=== PATIENT | female | born 1985 | race Caucasian/White ===

== ENCOUNTER 2023-11-30 11:28 | Inpatient (IN) ==
[2023-11-30] MEDS ORDERED: ONDANSETRON INJ 2 MG/ML 2 ML VIAL IV STA ×2 (11:55→16:10)
[2023-11-30] MEDS ORDERED: SODIUM CHLORIDE 0.9% 500 ML IV STA (11:55)
[2023-11-30] MEDS ORDERED: KETOROLAC TROMETHAMINE 15 MG/ML VIAL IV STA (11:55)
[2023-11-30 12:29] LABS: Appearance Urine Cloudy (Clear); Bacteria Urine Automated 2+ (Negative); Blood Urine Negative (Negative); Color Urine Orange; Epithelial Cell Urine Auto >30 /lpf (0-5); Glucose Urine UA Trace (Negative); Ketones Urine Trace (Negative); Leukocyte Esterase Urine 1+ (Negative); Nitrite Urine Positive (Negative); Protein Urine 2+ (Negative); Specific Gravity Urine > 1.045 (1.000-1.030); Urobilinogen Urine Positive (Negative); WBC Urine Automated >30 /hpf (0-5)
[2023-11-30 12:36] LABS: Bilirubin Urine 3+ (Negative)
[2023-11-30 12:39] LABS: Basophils # (auto) 0.07 K/uL (0.00-0.20); Basophils % (auto) 0.4 %; Eosinophils # (auto) 0.25 K/uL (0.00-0.50); Eosinophils % (auto) 1.6 %; Hematocrit (blood only) 41.3 % (37.0-47.0); Hemoglobin 13.2 g/dl (12.0-16.0); Immature Granulocytes # (auto) 0.07 K/uL (0.01-0.20); Immature Granulocytes % (auto) 0.4 %; Lymphocytes # (auto) 1.27 K/uL (1.20-3.40); Lymphocytes % (auto) 7.9 %; Mean Corpuscular Hemoglobin 26.3 pg (25.0-34.0); Mean Corpuscular Volume 82.3 fL (80.0-100.0); Mean Platelet Volume 10.9 fL (9.4-12.4); Monocytes # (auto) 0.87 K/uL (0.11-0.59); Monocytes % (auto) 5.4 %; Neutrophils # (auto) 13.51 K/uL (1.40-6.50); Neutrophils % (auto) 84.3 %; Platelet Count 290 K/uL (130-400); RDW Coefficient of Variation 13.2 % (11.5-14.5); RDW Standard Deviation 39.4 fL (36.4-46.3); Red Blood Count 5.02 M/uL (4.20-5.40); White Blood Count 16.04 K/ul (4.8-10.8)
[2023-11-30 12:54] LABS: Albumin Globulin Ratio 1.2 (0.9-2); Albumin Level 4.1 gm/dl (3.4-5.0); BUN Creatinine Ratio 14.5 (10-20); Calcium 9.6 mg/dl (8.6-10.3); Creatinine Clr Calc Pharmacy 130.5 ml/min; Est GFR (African American) 130.7 ml/min; Est GFR (Non-African American) 112.8 ml/min; Globulin 3.5 gm/dl (2.5-4.0); Potassium 3.7 mmol/L (3.5-5.1); Total Protein 7.6 gm/dl (6.0-8.3)
[2023-11-30 13:19] LABS: Mucus Urine Present (None Prsent); RBC Urine Automated 0-4 /hpf (0-4)
[2023-11-30] MEDS ORDERED: CEFEPIME 2,000 MG/20 ML VIAL IV STA (13:24)
[2023-11-30] MEDS ORDERED: SODIUM CHLORIDE 0.9% 1,000 ML IV ONE (13:24)
--- NOTE | 2023-11-30 13:45 | Emergency Department Note ---
Impression & Plan RUQ abdominal pain, Acute cholecystitis, Leukocytosis, Elevated liver enzymes ED Provider Note NAME: GOPI MUNGUIA AGE: 38 SEX: F : 1985 ARRIVES VIA: Walk-In INFORMANT: [Patient] ED PROVIDER(S): [Dean Tavera MD] CHIEF COMPLAINT: Dr. Referred HISTORY OF PRESENT ILLNESS: Abdominal ultrasound report from 11/30/2023-cholelithiasis, gallbladder wall thickening, positive sonographic Abreu sign. Findings are suspicious for acute cholecystitis. The common bile duct is dilated to 8 mm, uncertain etiology. The patient is a 38-year-old female who has had 5 days of pain in the right upper quadrant and right back. She states that things have not subsided. She has had some nausea but no vomiting. She has had some chills, no fever. She has no appetite. No diarrhea or urinary complaints. No cough or cold or congestion. The patient has had pain similar to this before but it has always resolved spontaneously. The patient had an outpatient ultrasound performed today at [facility]. This showed evidence for acute cholecystitis. She was referred to the ER. PMHx/PSHx/Social Hx: See Below PHYSICAL EXAM: GENERAL: Patient is in no acute distress. HEENT: No acute trauma, normocephalic atraumatic, mucous membranes moist, no nasal congestion. NECK: No stridor, no adenopathy, no meningismus, trachea is midline. LUNGS: Clear to auscultation bilaterally, no wheeze, no rhonchi, breath sounds equal. HEART: Without murmurs gallops or rubs, regular rate and rhythm. ABDOMEN: Soft, moderately tender in the right upper quadrant. No distention EXTREMITIES: No cyanosis, full range of motion of all the joints without pain or difficulty. NEUROLOGIC: Oriented x 3, no acute motor or sensory deficits, no focal weakness. SKIN: No jaundice, no diaphoresis. DIFFERENTIAL DIAGNOSIS: Biliary obstruction, acute cholecystitis, biliary colic, pancreatitis, gastritis, electrolyte imbalance, among others. EMERGENCY DEPARTMENT PROCEDURES: MEDICAL DECISION MAKING: There is a moderate leukocytosis, this is consistent with infection. There is a normal hemoglobin and platelet count. No renal failure or significant electrolyte abnormality. There is elevation to the liver enzymes. Bilirubin was 2. No evidence for pancreatitis. Urinalysis shows potential infection versus contamination. Gallbladder ultrasound from the outpatient setting does show findings of acute cholecystitis. On exam, the patient was tender in the right upper quadrant. She was not toxic or febrile. Patient received IV saline, 1.5 L. She was given IV Zofran and IV morphine and IV Toradol. She received IV cefepime as antibiotic coverage. I did speak with GI here at [facility], there was no one available for ERCP. I did speak with general surgery here at [facility], they recommended transfer as there is no one available for ERCP. I did call and speak with Dr. Sung at [facility] in [place]. He was on-call for GI. He recommended an MRCP to see if there was truly a biliary obstruction. If there was obstruction on MRCP, the patient could potentially be transferred to their hospital tomorrow. There were no beds available for transfer this evening. For now, the patient will be hospitalized at our facility. MRCP has been ordered. If there is an obstruction of the biliary system, she can be transferred to [facility], hopefully tomorrow. If there is no obstruction, surgery can see her here for cholecystectomy. The patient is aware of her findings, she is currently resting comfortably. I did speak with case management, the on-call hospitalist was consulted. Prior/Outside records/notes reviewed: Orthopedic note from 08/10/2023 discussing her left knee pain and the plan moving forward. ECG per my interpretation: Indication was abdominal pain. The ECG shows a normal sinus rhythm with a rate of 94. There is some nonspecific ST change primarily in the inferior leads. There is no ST elevation, no PVCs. The QTc is 432. Continuous Cardiac Monitoring per my interpretation: An order was placed for continuous cardiac monitoring. The monitor shows a rate of 98 with normal sinus rhythm. Imaging/x-ray results per my interpretation: Chronic Medical/Social conditions affecting care: Care/Management discussed with: Case management, [facility] GI- Dr. Mcdermott. General surgery here at [facility]. [facility] GI- Dr. Sung. Level of care consideration(s): After review of the information above and other included data: --I believe the patient requires escalation of care to admission Critical Care Note: I have personally spent 41 minutes of critical care time in the direct management of this patient. This includes bedside care, interpretation of diagnostic studies, and testing, discussion with consultants, patient, and family members, and other required patient management activities. This 41 minutes is in excess of all separately billable procedures. DISPOSITION: Admission with potential transfer to tertiary care. Past Med/Surg History Medical History Seasonal allergies Depression with anxiety Surgical History (Updated 11/30/23 @ 16:27 by Raven Mckay PA-C) Hx of tubal ligation Family History (Updated 11/30/23 @ 16:27 by Raven Mckay PA-C) Other Diabetes Social History Smoking Status: Never smoker Hx Alcohol Use: No Hx Substance Use: No Preferred Language: Yakut Communication Ability: Effective marital status: Current Living Situation: Spouse Feels Safe at Home: Yes Allergies Allergies Allergy/AdvReac Type Severity Reaction Status Date / Time Penicillins Allergy Unknown Unknown Verified 11/30/23 15:20 Home Meds Home Medications Medication Instructions Recorded Confirmed escitalopram oxalate 10 mg tablet 10 mg PO DAILY 07/13/23 11/30/23 dextroamphetamine-amphetamine ER 20 mg PO QAM 11/30/23 11/30/23 20 mg 24hr capsule,extend release Results & Data (ED) Vital Signs Vital Signs - 24 hr 11/30/23 11:52 11/30/23 14:25 11/30/23 15:57 Temperature 36.6 C Temperature Source Temporal Artery Scan Pulse Rate 107 H Pulse Rate [Apical] 91 H 88 Respiratory Rate 20 18 16 Respiratory Effort / Characteristics Non-Labored Non-Labored Spontaneous Respiratory Depth Normal Normal Respiratory Pattern Regular Blood Pressure 135/75 Blood Pressure [Left Arm] 118/67 124/79 Blood Pressure Mean 95 Blood Pressure Mean [Left Arm] 84 94 Blood Pressure Position [Left Arm] Lying Pulse Oximetry 100 99 100 Oxygen Delivery Method Room Air Room Air Room Air Sepsis Recent Fever Within 48 Hours No Sepsis New/Unexplained Change in Mental Status No Sepsis Action Taken by Nursing No Action Required 11/30/23 17:00 Temperature Temperature Source Pulse Rate Pulse Rate [Apical] 99 H Respiratory Rate 18 Respiratory Effort / Characteristics Respiratory Depth Respiratory Pattern Blood Pressure Blood Pressure [Left Arm] 107/72 Blood Pressure Mean Blood Pressure Mean [Left Arm] 83 Blood Pressure Position [Left Arm] Pulse Oximetry 99 Oxygen Delivery Method Sepsis Recent Fever Within 48 Hours Sepsis New/Unexplained Change in Mental Status Sepsis Action Taken by [facility] Medications Current Medication List: was personally reviewed by me Laboratory Data Attestation: I reviewed the patient's lab results. 11/30/23 12:00 11/30/23 12:00 Lab Results 11/30/23 Range/Units 12:00 WBC 16.04 H (4.8-10.8) K/ul RBC 5.02 (4.20-5.40) M/uL Hgb 13.2 (12.0-16.0) g/dl Hct 41.3 (37.0-47.0) % MCV 82.3 (80.0-100.0) fL MCH 26.3 (25.0-34.0) pg MCHC 32.0 (32.0-36.0) g/dL RDW Std Deviation 39.4 (36.4-46.3) fL RDW Coeff of Yasmin 13.2 (11.5-14.5) % Plt Count 290 (130-400) K/uL MPV 10.9 (9.4-12.4) fL Immature Gran % (Auto) 0.4 % Neut % (Auto) 84.3 % Lymph % (Auto) 7.9 % [place] % (Auto) 5.4 % Eos % (Auto) 1.6 % Baso % (Auto) 0.4 % Neut # (Auto) 13.51 H (1.40-6.50) K/uL Lymph # (Auto) 1.27 (1.20-3.40) K/uL [place] # (Auto) 0.87 H (0.11-0.59) K/uL Eos # (Auto) 0.25 (0.00-0.50) K/uL Baso # (Auto) 0.07 (0.00-0.20) K/uL Immature Gran # (Auto) 0.07 (0.01-0.20) K/uL Sodium 138 (136-145) mmol/L Potassium 3.7 (3.5-5.1) mmol/L Chloride 101 (98-107) mmol/L Carbon Dioxide 30 (21-32) mmol/L Anion Gap 7 (3-11) BUN 9 (6-23) mg/dl Creatinine 0.62 (0.6-1.2) mg/dl Est Cr Clr Drug Dosing 130.5 ml/min Est GFR ( Amer) 130.7 ml/min Est GFR (Non-Af Amer) 112.8 ml/min BUN/Creatinine Ratio 14.5 (10-20) Glucose 100 H (70-99(Fasting)) mg/dl Calcium 9.6 (8.6-10.3) mg/dl Total Bilirubin 2.0 H (0.2-1.0) mg/dl AST 148 H (13-39) U/L ALT 166 H (7-52) U/L Alkaline Phosphatase 189 H (34-104) U/L Total Protein 7.6 (6.0-8.3) gm/dl Albumin 4.1 (3.4-5.0) gm/dl Globulin 3.5 (2.5-4.0) gm/dl Albumin/Globulin Ratio 1.2 (0.9-2) Lipase 15 (11-82) U/L Urine Color Ranger Urine Appearance Cloudy A (Clear) Urine pH 6.0 (4.5-7.5) Ur Specific [place] > 1.045 H (1.000-1.030) Urine Protein 2+ H (Negative) Urine Glucose (UA) Trace H (Negative) Urine Ketones Trace H (Negative) Urine Blood Negative (Negative) Urine Nitrite Positive A (Negative) Urine Bilirubin 3+ H (Negative) Urine Urobilinogen Positive H (Negative) Ur Leukocyte Esterase 1+ H (Negative) Urine WBC (Auto) >30 H (0-5) /hpf Urine RBC (Auto) 0-4 (0-4) /hpf U Hyaline Cast (Auto) 5-10 H (0-5) /lpf U Epithel Cells (Auto) >30 H (0-5) /lpf Urine Bacteria (Auto) 2+ H (Negative) Urine Mucus Present A (None Prsent) Administered Medications Discontinued Medications Sodium Chloride (Nss) 500 mls @ 999 mls/hr IV .Q31M STA Stop: 11/30/23 12:25 Last Infusion: 11/30/23 14:11 Dose: Infused Documented By: Admin: 11/30/23 12:14 Dose: 999 mls/hr Documented By: TABITHA Cefepime HCl (Maxipime) 2,000 mg in 20 mls @ 5 mls/min IV NOW STA; Protocol Stop: 11/30/23 13:27 Last Admin: 11/30/23 14:19 Dose: 5 mls/min Documented By: RASHAD Sodium Chloride (Nss) 1,000 mls @ 999 mls/hr IV .Q1H1M ONE Stop: 11/30/23 14:24 Last Infusion: 11/30/23 15:57 Dose: Infused Documented By: Admin: 11/30/23 14:19 Dose: 999 mls/hr Documented By: RASHAD Ketorolac Tromethamine (Ketorolac Tromethamine 15 Mg/Ml Vial) 15 mg IV ONE STA Stop: 11/30/23 11:56 Last Admin: 11/30/23 12:13 Dose: 15 mg Documented By: TABITHA Ketorolac Tromethamine (Ketorolac Tromethamine 15 Mg/Ml Vial) Confirm Administered Dose 15 mg .ROUTE .STK-MED ONE Stop: 11/30/23 16:47 Last Admin: 11/30/23 17:00 Dose: Not Given Documented By: THA Morphine Sulfate (Morphine Sulfate 4 Mg/Ml 1 Ml Carp\Vial) 4 mg IV NOW STA Stop: 11/30/23 16:11 Last Admin: 11/30/23 16:16 Dose: 4 mg Documented By: THA Ondansetron HCl (Ondansetron Inj 2 Mg/Ml 2 Ml Vial) 4 mg IV NOW STA Stop: 11/30/23 11:56 Last Admin: 11/30/23 12:13 Dose: 4 mg Documented By: TABITHA Ondansetron HCl (Ondansetron Inj 2 Mg/Ml 2 Ml Vial) 4 mg IV NOW STA Stop: 11/30/23 16:11 Last Admin: 11/30/23 16:16 Dose: 4 mg Documented By: THA Imaging Data Radiologist's Impression: Cholangiopancreatography MRI 11/30/23 15:50 MR MRCP HISTORY: ruq pain, cholecystitis TECHNIQUE: MRCP the abdomen was performed without contrast according to standard departmental protocol. COMPARISON STUDY: None. FINDINGS: The lung bases are clear. No hepatic or splenic masses. No hydronephrosis. No retroperitoneal lymphadenopathy. There is a left circumaortic renal vein. Normal caliber abdominal aorta. The visualized loops of bowel show no wall thickening or obstruction. There are multiple small gallstones. The gallbladder demonstrates a severely thickened wall with pericholecystic fluid/edema. The edema is seen along the undersurface of the liver adjacent to the pancreatic head. This is likely reactive to the suspected acute cholecystitis. The common hepatic duct is mildly dilated up to 9 mm. Normal caliber common bile duct measuring 5.8 mm. No filling defects within the common bile duct or common hepatic duct. The main pancreatic duct is normal in course and caliber. There is a 7 mm stone at the gallbladder neck/cystic duct best seen on coronal series 5 image 14. This likely accounts for the suspected acute cholecystitis. IMPRESSION: 1. Cholelithiasis with a markedly thickened gallbladder wall and pericholecystic fluid/edema. There is a 7 mm stone at the gallbladder neck/cystic duct. This likely accounts for the suspected acute cholecystitis. Urgent surgical consultation recommended. 2. No evidence for choledocholithiasis. ACT 112: Negative or not required by law. Electronically signed by: Mark Anthony Wilcox M.D. 11/30/2023 5:42 PM Discharge Plan Visit Data Chief Complaint: Referred by Doctor Stated Complaint: GALLBLADDER ISSUES ED Provider: Dean Tavera Discharge Problem: RUQ abdominal pain, Acute cholecystitis, Leukocytosis, Elevated liver enzymes Patient Disposition: Admitted As Inpatient Condition: Fair Prescriptions Prescriptions: No Action escitalopram oxalate 10 mg tablet 10 mg PO DAILY dextroamphetamine-amphetamine 20 mg capsule,extended release 24hr 20 mg PO QAM Discharge Problem: Leukocytosis Qualifiers: Leukocytosis type: unspecified Qualified Code(s): D72.829 - Elevated white blood cell count, unspecified
--- NOTE | 2023-11-30 14:53 | Electrocardiogram Report ---
Test Reason : Blood Pressure : / mmHG Vent. Rate : 094 BPM Atrial Rate : 094 BPM P-R Int : 126 ms QRS Dur : 074 ms QT Int : 346 ms P-R-T Axes : 051 015 -09 degrees QTc Int : 432 ms Normal sinus rhythm Nonspecific ST and T wave abnormality Abnormal ECG No previous ECGs available Confirmed by Morgan Palmer ([id number]) on 11/30/2023 2:53:30 PM Referred By: Confirmed By:Morgan Palmer
[2023-11-30] MEDS ORDERED: MoRPHine SULFATE 4 MG/ML 1 ML CARP\\VIAL IV STA (16:10)
[2023-11-30] MEDS ORDERED: metroNIDAZOLE 500 MG/100 ML BAG IV STA (16:28)
[2023-11-30] MEDS ORDERED: KETOROLAC TROMETHAMINE 15 MG/ML VIAL IV ONE (16:44)
[2023-11-30] MEDS ORDERED: KETOROLAC TROMETHAMINE 15 MG/ML VIAL ONE (16:46)
[2023-11-30] MEDS ORDERED: NSS + 20MEQ KCL 20 MEQ/1,000 ML BAG IV SCH (17:00)
--- NOTE | 2023-11-30 17:11 | History & Physical Report ---
Date of Service November 30, 2023 Assessment & Plan (1) Sepsis: (2) Acute cholecystitis: (3) Transaminitis: (4) Abdominal pain: (5) Abnormal urinalysis: Plan This is a 38-year-old female who has a significant past medical history of depression with anxiety, seasonal allergies and ADHD who presents to ED secondary to abnormal abdominal ultrasound as outpatient and abdominal pain. On admission pt meeds criteria for sepsis due to tachycardia, leukocytosis received broad spectrum antibiotics with IV cefepime Received IVF, 1500ml source: Gallbladder, possible UTI Sepsis, POA Abdominal pain Acute cholecystitis Transaminitis OP US: Cholelithiasis, gallbladder wall thickening, positive Abreu sign concerning for acute cholecystitis, CBD dilated to 8 mm Obtain MRCP to rule out obstruction ED provider discussed with on-call gastroenterology MRCP performed Cholelithiasis with a markedly thickened gallbladder wall and pericholecystic fluid/edema. There is a 7 mm stone at the gallbladder neck/cystic duct. This likely accounts for the suspected acute cholecystitis. Urgent surgical consultation recommended. 2. No evidence for choledocholithiasis. Discussed with General Surgery Dr. Cj Buenrostro as well as [facility] Transfer center team Dr. Sung GI and Dr Campo gen surg of [place] All were in agreement to transfer pt to tertiary given lack of biliary coverage on site Accepting physician is Dr. Campo, no bed available tonight, possibly tomorrow will consult GI while in house Trend CMP, CBC in a.m., also add mag Continue antibiotics with IV cefepime and IV Flagyl IV NSS +20 mEq KCl at 110/h Pain control with IV Tylenol mild pain, IV Toradol moderate pain, IV Dilaudid severe pain T bili 2.0, AST 148, ALT 166, ALP 189 obtain lactic acid and serum hcg Abnormal urinalysis Urinalysis concerning for possible infection Patient denies any symptoms, has previous history of urinary tract infection with symptoms Currently on antibiotics as above, await urine culture Would recommend repeat urine once acute illness improved Depression with anxiety ADHD chronic, stable Continue escitalopram Hold dextroamphetamine while inpatient DVT prophylaxis: SCDs due to likely upcoming procedure, encouraged ambulation Full code PCP: Dr. Daigle Dispo: admit to tele, pt is in que for transfer to [facility] for ERCP Pt was seen and examined in collaboration with Dr. Kanorado, please see addendum A total of 85 minutes was spent coordinating, documenting, and providing care for this patient excluding time spent in the performance of separately billed services. This included personally viewing all current laboratories and imaging studies, medication reconciliation, outpatient chart review, and discussion with specialists. History of Present Illness Chief Complaint: Abdominal pain Primary Care Provider: Lety Daigle DO This is a 38-year-old female who has a significant past medical history of depression with anxiety, seasonal allergies and ADHD who presents to ED second marlon to abnormal abdominal ultrasound as outpatient and abdominal pain. She was seen and evaluated in outpatient clinic today. Outpatient records were reviewed. Symptoms started approximately 5 days ago with right upper quadrant pain, nausea and bloating. She forced herself to vomit this past Monday, but has not vomited since. She has not drank anything in the last 24 hours due to not feeling well. Pain gets worse with eating. She has never had similar symptoms. Pain does not radiate. She denies any documented fever, chills or sweats. She further denies any chest pain, cough, URI symptoms, dysuria, increased urinary frequency with urination, hematuria, melena, hematochezia or diarrhea. She does complain of shortness of breath when pain becomes severe. An abdominal ultrasound was ordered as an outpatient. Ultrasound was equivocal for cholelithiasis, gallbladder wall thickening with positive Abreu sign concerning for acute cholecystitis. Her CBD was measuring 8 mm and dilated. She was referred to ED for further evaluation. In ED she was hemodynamically stable. She did have leukocytosis with WBC at 16k, transaminitis with total bilirubin of 2.0, AST 148, ALT 166 and alk phos 189. Her urinalysis revealed +2 protein, glucose, ketones, bilirubin, nitrate and bacteria. She empirically received IV cefepime, IV fluids, IV Zofran, IV morphine and Toradol in ED. She has allergy to penicillins. Her is at bedside who also helps elicit history. Allergies Allergy/AdvReac Type Severity Reaction Status Date / Time Penicillins Allergy Unknown Unknown Verified 11/30/23 15:20 Home Medications Medication Instructions Recorded Confirmed Type escitalopram oxalate 10 mg tablet 10 mg PO DAILY 07/13/23 11/30/23 History dextroamphetamine-amphetamine ER 20 mg PO QAM 11/30/23 11/30/23 History 20 mg 24hr capsule,extend release Past Med/Surg History Medical History Seasonal allergies Depression with anxiety Surgical History Hx of tubal ligation Family History Other Diabetes Social History Smoking Status: Never smoker Hx Alcohol Use: No Hx Substance Use: No Preferred Language: Khmer Communication Ability: Effective marital status: Current Living Situation: Spouse Feels Safe at Home: Yes Review of Systems Review of Systems: All systems reviewed & are unremarkable except as noted in HPI & below Physical Exam Physical Exam: Constitutional: WD/WN, vitals as above, NAD, sitting up in bed, pleasant, conversing easily Head: Normocephalic, Atraumatic Eyes: PERRL, conjunctivae normal, anicteric sclerae ENMT: external ear and nose normal, oropharynx normal Neck: trachea midline, no thyromegaly normal visual inspection Respiratory: normal respiratory effort, lungs clear to auscultation, no wheeze, rales, rhonchi. Normal insp/exp effort, no accessory muscle use Cardiovascular: RRR, no murmur, no edema Vessels: no JVD or carotid bruit Chest: normal inspection of chest Abdomen: normal bowel sounds, soft, +pain to palp RUQ with rebound, not distended Musculoskeletal: no cyanosis or clubbing, extremities motor strength 5/5 Skin: no rashes, warm and dry normal turgor Neurologic: PERRL, EOMI, accommodation nl, no face palsy, no dysarthria CN's II-XI intact bilaterally and moves all extremities Psychiatric: A+Ox3, euthymic affect Lymphatic: no cervical or axillary lymphadenopathy : deferred Results & Data Results & Data Vital Signs (Past 12 Hours) Vital Signs Temp Pulse Pulse Resp BP BP Pulse Ox 11/30/23 15:57 88 16 124/79 100 11/30/23 14:25 91 H 18 118/67 99 11/30/23 11:52 36.6 C 107 H 20 135/75 100 O2 Del Method 11/30/23 15:57 Room Air 11/30/23 14:25 Room Air 11/30/23 11:52 Room Air Diagnostic Findings OP US of abd: 1. Cholelithiasis, gallbladder wall thickening, and positive sonographic Abreu's sign. Findings are suspicious for acute cholecystitis. 2. The common bile duct is dilated to 8 mm, uncertain etiology. Consider MRI/MR CP for further evaluation. Medications Administered Medication List Discontinued Medications Sodium Chloride (Nss) 500 mls @ 999 mls/hr IV .Q31M STA Stop: 11/30/23 12:25 Last Infusion: 11/30/23 14:11 Dose: Infused Documented By: Admin: 11/30/23 12:14 Dose: 999 mls/hr Documented By: TABITHA Cefepime HCl (Maxipime) 2,000 mg in 20 mls @ 5 mls/min IV NOW STA; Protocol Stop: 11/30/23 13:27 Last Admin: 11/30/23 14:19 Dose: 5 mls/min Documented By: RASHAD Sodium Chloride (Nss) 1,000 mls @ 999 mls/hr IV .Q1H1M ONE Stop: 11/30/23 14:24 Last Infusion: 11/30/23 15:57 Dose: Infused Documented By: Admin: 11/30/23 14:19 Dose: 999 mls/hr Documented By: RASHAD Ketorolac Tromethamine (Ketorolac Tromethamine 15 Mg/Ml Vial) 15 mg IV ONE STA Stop: 11/30/23 11:56 Last Admin: 11/30/23 12:13 Dose: 15 mg Documented By: TABITHA Ketorolac Tromethamine (Ketorolac Tromethamine 15 Mg/Ml Vial) Confirm Administered Dose 15 mg .ROUTE .STK-MED ONE Stop: 11/30/23 16:47 Last Admin: 11/30/23 17:00 Dose: Not Given Documented By: THA Morphine Sulfate (Morphine Sulfate 4 Mg/Ml 1 Ml Carp\Vial) 4 mg IV NOW STA Stop: 11/30/23 16:11 Last Admin: 11/30/23 16:16 Dose: 4 mg Documented By: THA Ondansetron HCl (Ondansetron Inj 2 Mg/Ml 2 Ml Vial) 4 mg IV NOW STA Stop: 11/30/23 11:56 Last Admin: 11/30/23 12:13 Dose: 4 mg Documented By: TABITHA Ondansetron HCl (Ondansetron Inj 2 Mg/Ml 2 Ml Vial) 4 mg IV NOW STA Stop: 11/30/23 16:11 Last Admin: 11/30/23 16:16 Dose: 4 mg Documented By: THA ECG Rate (beats per minute): 94 Rhythm: normal sinus Additional Comments: I have independently reviewed and interpreted patient's admitting labs including CBC, CMP, UA, OP US, LIPASE . COVID-19 Results Results COVID-19 Adm Lab Results: RBC 5.02 M/uL (4.20-5.40) 11/30/23 WBC 16.04 K/ul (4.8-10.8) H 11/30/23 Hgb 13.2 g/dl (12.0-16.0) 11/30/23 Hct 41.3 % (37.0-47.0) 11/30/23 Plt Count 290 K/uL (130-400) 11/30/23 Neutrophils (%) (Auto) 84.3 % 11/30/23 Lymphocytes (%) (Auto) 7.9 % 11/30/23 Monocytes # (Auto) 0.87 K/uL (0.11-0.59) H 11/30/23 Eosinophils # (Auto) 0.25 K/uL (0.00-0.50) 11/30/23 Immature Granulocyte % (Auto) 0.4 % 11/30/23 Neutrophils # (Auto) 13.51 K/uL (1.40-6.50) H 11/30/23 Lymphocytes # (Auto) 1.27 K/uL (1.20-3.40) 11/30/23 Monocytes # (Auto) 0.87 K/uL (0.11-0.59) H 11/30/23 Eosinophils # (Auto) 0.25 K/uL (0.00-0.50) 11/30/23 Basophils # (Auto) 0.07 K/uL (0.00-0.20) 11/30/23 Immature Granulocyte # (Auto) 0.07 K/uL (0.01-0.20) 4 Na 138 mmol/L (136-145) 11/30/23 K 3.7 mmol/L (3.5-5.1) 11/30/23 Cl 101 mmol/L (98-107) 11/30/23 CO2 30 mmol/L (21-32) 11/30/23 Anion Gap 7 (3-11) 11/30/23 BUN 9 mg/dl (6-23) 11/30/23 Creatinine 0.62 mg/dl (0.6-1.2) 11/30/23 BUN/Creatinine Ratio 14.5 (10-20) 11/30/23 Glucose Level 100 mg/dl (70-99(Fasting)) H 11/30/23 Ca 9.6 mg/dl (8.6-10.3) 11/30/23 Total Bilirubin 2.0 mg/dl (0.2-1.0) H 11/30/23 AST/SGOT 148 U/L (13-39) H 11/30/23 ALT/SGPT 166 U/L (7-52) H 11/30/23 Alkaline Phosphatase 189 U/L (34-104) H 11/30/23 Total Protein 7.6 gm/dl (6.0-8.3) 11/30/23 Albumin 4.1 gm/dl (3.4-5.0) 11/30/23 Globulin 3.5 gm/dl (2.5-4.0) 11/30/23 Albumin/Globulin Ratio 1.2 (0.9-2) 11/30/23 Code Status & VTE Plan Code Status FULL CODE VTE Prophylaxis Plan VTE Prophylaxis will be ordered: Yes Supervising Physician Co-Signing Physician Notes I have seen and examined the patient and have discussed the case with the provider above. I agree with the assessment and plan as stated. 38-year-old female presents with severe right upper quadrant pain and epigastric pain. Found to have a developing acute cholecystitis with cholelithiasis and a dilated common bile duct. MRCP as noted above. Planning for transfer to [facility] [place] [place]. Will trend LFTs in AM. Continue with IV antibiotics including cefepime and IV Flagyl. Continue IV fluids for hydration as well as aggressive pain control with Toradol and Dilaudid for severe pain. She is requesting fluids to drink which is reassuring. is at bedside and assist with history. Physical exam with severe epigastric tenderness and right upper quadrant pain but belly is nondistended. She is otherwise mentating well and exam is otherwise unremarkable or as noted above. Continue with broad-spectrum antibiotics pain control and await transfer to outside facility. Nic,
--- NOTE | 2023-11-30 17:44 | Magnetic Resonance Report ---
MR MRCP HISTORY: ruq pain, cholecystitis TECHNIQUE: MRCP the abdomen was performed without contrast according to standard departmental protoco l. COMPARISON STUDY: None. FINDINGS: The lung bases are clear. No hepatic or splenic masses. No hydronephrosis. No retroperitone al lymphadenopathy. There is a left circumaortic renal vein. Normal caliber abdominal aorta. The visu alized loops of bowel show no wall thickening or obstruction. There are multiple small gallstones. Th e gallbladder demonstrates a severely thickened wall with pericholecystic fluid/edema. The edema is s een along the undersurface of the liver adjacent to the pancreatic head. This is likely reactive to t he suspected acute cholecystitis. The common hepatic duct is mildly dilated up to 9 mm. Normal calibe r common bile duct measuring 5.8 mm. No filling defects within the common bile duct or common hepatic duct. The main pancreatic duct is normal in course and caliber. There is a 7 mm stone at the gallbla dder neck/cystic duct best seen on coronal series 5 image 14. This likely accounts for the suspected acute cholecystitis. IMPRESSION: 1. Cholelithiasis with a markedly thickened gallbladder wall and pericholecystic fluid/edema. There i s a 7 mm stone at the gallbladder neck/cystic duct. This likely accounts for the suspected acute chol ecystitis. Urgent surgical consultation recommended. 2. No evidence for choledocholithiasis. ACT 112: Negative or not required by law. Electronically signed by: Mark Anthony Wilcox M.D. 11/30/2023 5:42 PM
[2023-11-30] MEDS ORDERED: HYDROmorphone INJ 0.5 MG/0.5 ML SYR IV PRN (18:00)
[2023-11-30] MEDS ORDERED: ONDANSETRON INJ 2 MG/ML 2 ML VIAL IV PRN (18:00)
[2023-11-30] MEDS: NSS + 20MEQ KCL 20 MEQ/1,000 ML BAG IV SCH (18:44)
--- NOTE | 2023-11-30 19:32 | Surgery Consultation ---
Date of Consultation November 30, 2023 Assessment & Plan (1) Acute cholecystitis: The patient is being admitted on the hospitalist service. From surgical perspective we recommend the following: Patient has elevated LFTs, and although there is no choledocholithiasis noted on MRCP her common bile duct is dilated thus raising the concern for false negative MRCP for choledocholithiasis. Gastroenterology has been consulted and reportedly ERCP services are not available at [facility] at this time. Therefore plans are in place for patient to be transferred to [facility] in [place], [place]. At the present time there are no beds available at [place] Would recommend providing analgesics Provide antiemetics The patient is currently receiving clear liquids she should be made n.p.o. after midnight tonight IV fluids to be provided for hydration Antibiotics in form of cefepime and Flagyl have been initiated and he should continue Repeat labs to be ordered for the morning. I discussed with the patient that if on repeat labs her LFTs are normalizing we can tentatively plan on performing a cholecystectomy with Dr. Cj Buenrostro. I did discuss with the patient that if we do proceed with cholecystectomy in the setting of decreasing LFTs there is still a chance that she could have choledocholithiasis that would require procedural intervention following her surgery which would likely include an ERCP. She did express her understanding Recommend using only SCDs for DVT prevention, no chemical means due to the possibility of required procedures This recommendations be forthcoming based on her clinical course as unfolds Supervising Physician Co-Signing Physician Notes I personally saw and evaluated the patient with Jacques Penny PA-C and agree with the assessment and plan. 38-year-old female with acute cholecystitis and elevated LFTs Her ultrasound images and MRCP images and results were personally reviewed and interpreted by myself She does have a dilated duct on ultrasound but not MRCP and no choledocholithiasis seen She also has acute cholecystitis, her liver enzymes are stable to trending down this morning Will proceed with a laparoscopic cholecystectomy, possible open, possible intraoperative cholangiogram Consent was obtained, risks discussed including bleeding, infection, bile leak, ductal injury, retained stone I did discuss her management with [facility] did not feel she needed an ERCP based on her imaging findings History of Present Illness Reason for Consultation: Cholecystitis Attending Physician: Destiny Lucero, History of Present Illness This is a 38-year-old female who presented to the emergency department secondary to abdominal pain. Patient notes that she has had 5 days of pain in her right upper quadrant and epigastric area with some radiation to her back. She says that she self-induced vomiting as she felt nauseated which somewhat alleviated the pain but her pain would continue to recur. She denies any fevers, shakes, or chills. Patient says that she has had prior abdominal surgeries in the form of a laparoscopic tubal ligation. She has never had an upper or lower endoscopy. Because of the patient's symptoms she did contact her primary care team who ordered an ultrasound. She did have an ultrasound at an outpatient [facility] facility that showed evidence for acute cholecystitis, thus prompting her referral to the emergency department. Since arrival to the hospital this patient has had labs and imaging which I independent reviewed. Patient underwent a MRCP. This study showed the patient had cholelithiasis with a thickened gallbladder wall and pericholecystic fluid and edema consistent with cholecystitis. There is also note of a 7 mm gallstone at the gallbladder neck. There is no evidence of choledocholithiasis on the study, however the common hepatic duct was dilated up to 9 mm. Labs include a CBC her white blood cell count was elevated 16.0. Hemoglobin and hematocrit along with a platelet count were normal. Chemistry profile showed sodium and potassium as well as the BUN and creatinine were normal. Patient had elevated LFTs with a total bilirubin of 2.0. Her AST and ALT were 148 and 166 respectively. Alkaline phosphatase is elevated 189. Her lipase was nonelevated. A test was pending. Patient also had a urinalysis that showed cloudy urine which was positive for nitrites. There is 1+ leukocyte Estrace and greater than 30 white blood cells per high-power field. There was 2+ bacteria noted on the study. At the time of my interview the patient was resting comfortably in bed and she was no distress. Allergies Allergy/AdvReac Type Severity Reaction Status Date / Time Penicillins Allergy Unknown Unknown Verified 11/30/23 15:20 Home Medications Medication Instructions Recorded Confirmed Type escitalopram oxalate 10 mg tablet 10 mg PO DAILY 07/13/23 11/30/23 History dextroamphetamine-amphetamine ER 20 mg PO QAM 11/30/23 11/30/23 History 20 mg 24hr capsule,extend release Patient History Medical History Seasonal allergies Depression with anxiety Surgical History Hx of tubal ligation Family History Other Diabetes Social History Smoking Status: Never smoker Hx Alcohol Use: No Hx Substance Use: No Preferred Language: Irish Communication Ability: Effective marital status: Current Living Situation: Spouse Feels Safe at Home: Yes Review of Systems Constitutional: no fever and no chills Ear, Nose, Mouth, Throat: no ear pain Respiratory: no cough Cardiovascular: no chest pain Gastrointestinal: as per Subjective / HPI Genitourinary: no dysuria Musculoskeletal: + back pain (Radiating from abdomen) Integumentary: no rash Neurologic: no localized weakness Physical Exam Constitutional: WD/WN, vitals as above Eyes: + anicteric sclerae ENMT: Ears: no hearing impairment and no external ear abnormality Mouth: no oropharynx abnormality Neck: trachea midline Respiratory: normal respiratory effort; no respiratory distress and no labored breathing Cardiovascular: Rate/Rhythm: regular rate and regular rhythm Gastrointestinal (Abdomen): Abdomen is soft and nonrigid. It is nondistended. There is no rebound tenderness or guarding but patient did have marked pain with palpation in the right upper quadrant and to a lesser degree the epigastric area. Musculoskeletal: No calf tenderness Skin: no rashes Neurologic: moves all extremities Psychiatric: A+Ox3, euthymic affect Results & Data Vital Signs (Past 12 Hours) Vital Signs Temp Pulse Pulse Resp BP BP Pulse Ox 11/30/23 18:46 98 11/30/23 18:45 89 16 117/60 99 11/30/23 17:00 99 H 18 107/72 99 11/30/23 15:57 88 16 124/79 100 11/30/23 14:25 91 H 18 118/67 99 11/30/23 11:52 36.6 C 107 H 20 135/75 100 O2 Del Method 11/30/23 18:46 11/30/23 18:45 Room Air 11/30/23 17:00 11/30/23 15:57 Room Air 11/30/23 14:25 Room Air 11/30/23 11:52 Room Air PG Care Time/CCT Total # of Minutes Spent Total Time Spent with Patient: Total time spent is greater than 50% in coordination of care (as documented) at patient's floor/unit and/or counseling patient: Coding Level of Care Code 15934 IN/OBS CONSULT LVL 5,80M Diagnoses Acute cholecystitis K81.0
[2023-11-30] MEDS: metroNIDAZOLE 500 MG/100 ML BAG IV SCH (19:44)
[2023-11-30] MEDS: ESCITALOPRAM OXALATE 10 MG TAB PO SCH (22:14)
[2023-11-30] MEDS: CEFEPIME 2,000 MG in SYRINGE 0 ML IV SCH (22:14)
--- OUTSIDE RECORDS SUMMARY | 2023-11-30 22:59 | External Medical Summary | Summary of Care ---
Author Name Unknown Organization [facility] Address [address] [place] [address] Phone [phone] Care Team Providers Care Roving Hand Name Role Phone DaigleYonatanLety Manuel Primary Care Provider Reason for Visit * Reason Comments Outpatient Testing Encounter Details Date Type Department Care Team Description 07/14/2023 Laboratory Laboratory [address] [place] [phone] [address] [place] [address] Swelling of left knee joint Allergies Active Allergy Reactions Severity Noted Date Comments Penicillins Rash 12/26/2016 documented as of this encounter (statuses as of 07/14/2023) Medications Medication Sig Dispensed Refills Start Date End Date Status Escitalopram Oxalate 10 MG Oral Tablet (Lexapro)Indications: Moderate episode of recurrent major depressive disorder (HCC) TAKE TWO TABLETS BY MOUTH EVERY DAY 180 Tab 0 07/07/2021 Active Escitalopram Oxalate 20 MG Oral Tablet (Lexapro)Indications: Anxiety and depression Take 1 Tablet by mouth daily. 90 Tablet 3 10/06/2021 Active busPIRone HCl 5 MG Oral Tablet (Buspar)Indications:A nxiety and depression Take 1 Tablet by mouth 2 times a day. 60 Tablet 1 10/06/2021 Active documented as of this encounter (statuses as of 07/14/2023) Active Problems Problem Noted Date Primary osteoarthritis of right knee 08/2021 Seasonal allergies 10/06/2021 Encounter for surveillance of abnormal n alexandra 02/16/2017 Overview: Mildly dysplastic (R upper back, L buttock) Anxiety and depression 12/26/2016 documented as of this encounter (statuses as of 07/14/2023) Immunizations Name Administration Dates Next Due COVID-19 mRNA, LNP-s, No Pre serve, 2-Dose Series (Moderna) 01/25/2021,12/28/2020 Seasonal Influenza, Quadriva lent, No Preserve, IM 09/09/2019,09/13/2018,09/18/2017 Seasonal Influenza, Split, I IV3, With Preserve, Inj 09/07/2016 TDAP (age 10 and older)(Boostrix) 12/26/2016 documented as of this encounter Social History Tobacco Use Types Packs/Day Years Used Date Smoking Tobacco: Never Smokeless Tobacco: Never Alcohol Use Standard Drinks/Week Comments Yes 0 (1 standard drink = 0.6 oz pur e alcohol) ocassionally Alcohol Habits Answer Date Recorded How often do you have a drink containing alcohol ? 2-4 times a month 06/19/2019 How many drinks containing a lcohol do you have on a typical day when you are drinking? Not asked How often do you have six or more drinks on one occasion? Not asked Food Insecurity Answer Date Recorded Within the past 12 months, y ou worried that your food would run out before you got money to buy more. Never true 01/03/2020 Within the past 12 months, t he food you bought just didn't last and you didn't have money to get more. Never true 01/03/2020 Sex Assigned at Date Recorded Not on file Job Start Date Occupation Industry Not on file Not on file Not on file documented as of this encounter Plan of Treatment Upcoming Encounters Date Type Specialty Care Team Description 08/07/2023 Imaging Radiology 07/15/2024 Office Visit Gynecology Obstetrics Sam Thomas MD [address] [place] [phone] Pending Results Name Type Priority Associated Diagnoses Date /Time LYME DISEASE ANTIBODY SCREEN WITH REFLEX TO CONFIRMATION Lab Routine Swelling of left knee joint 07/14/2023 1:54 PM EDT LYME DISEASE ANTIBODY SCREEN Lab Routine Swelling of left knee joint 07/14/2023 1:54 PM EDT Health Maintenance Due Date Last Done Comments Hepatitis B (1 of 3 - 3-dose series) 1983 Hepatitis C Screening 2001 HPV/Co-Test 2013 Depression Screening, Annual for Pts 12 and Over 06/22/2019 06/22/2018 COVID-19 Vaccine (3 - Moderna series) 03/22/2021 01/25/2021, 12/28/2020 Cervical Cancer Screening 06/19/2022 Pap Smear 06/19/2022 06/19/2019, 03/08/2017 Influenza Vaccine (FLU shot) (#1) 2023 09/09/2019, 09/13/2018, 09/18/2017, Additional history exists DTaP,Tdap,and Td Vaccines (2 - Td or Tdap) 12/26/2026 12/26/2016 GARDASIL-HPV IMMUNIZATION SERIES Aged Out No longer eligible based on patient's age to complete this topic MENINGOCOCCAL (MENACTRA/MENVEO) Aged Out No longer eligible based on patient's age to complete this topic Pneumococcal Vaccine: Pediatrics (0 to 5 Years) and At-Risk Patients (6 to 64 Years) Aged Out No longer eligible based on patient's age to complete this topic documented as of this encounter Medical Devices Not on filedocumented as of this encounter Visit Diagnoses Diagnosis Swelling of left knee joint Effusion of lower leg joint documented in this encounter Care Teams Roving Hand Relationship Specialty Start Date End Date Lety Daigle, [address] [place] [phone] PCP - General Internal Medicine 01/14/19 documented as of this encounter
--- OUTSIDE RECORDS SUMMARY | 2023-11-30 22:59 | External Medical Summary | Summary of Care ---
Author Name Unknown Organization [facility] Address [address] [facility] [place] [address] Phone [phone] Care Team Providers Care Pricing/Signage Team Member Name Role Phone Lety Daigle Primary Care Provider [phone] Reason for Visit * Reason Comments Acute Encounter Details Date Type Department Care Team (Late st Contact Info) Description 11/30/2023 9:20 AM EST Office Visit Family Medicine [address] [place] [phone] Grace Kelly PA-C [address] [place] [address] [place] [address] Abdominal pain, epigastric* Allergies Active Allergy Reactions Criticality Noted Date Comments Penicillins Rash 12/26/2016 documented as of this encounter (statuses as of 11/30/2023) Medications Medication Sig Dispensed Refills Start Date End Date Status Escitalopram Oxalate 10 MG Oral Tablet (Lexapro)Indicati ons:Moderate episode of recurrent major depressive disorder (HCC) TAKE TWO TABLETS BY MOUTH EVERY DAY 180 Tab 0 07/07/2021 Active Amphetamine-Dextr oamphet ER 20 MG Oral Capsule Extended Release 24 Hour (Adderall XR) Take 1 Capsule by mouth in the morning. Every morning.. 0 11/08/2023 Active Ondansetron HCl 4 MG Oral TabletIndications :Abdominal pain, epigastric Take 1 Tablet by mouth every 6 hours as needed for Nausea. 30 Tablet 0 11/30/2023 Active Pantoprazole Sodium 20 MG Oral Tablet Delayed Release (Protonix)Indicat ions:Abdominal pain, epigastric Take 1 Tablet by mouth in the morning. 30 minutes before the first meal of the day. Do not crush, split or chew the tablet. 30 Tablet 5 11/30/2023 Active Escitalopram Oxalate 20 MG Oral Tablet (Lexapro)Indicati ons:Anxiety and depression Take 1 Tablet by mouth daily. 90 Tablet 3 10/06/2021 11/30/2023 Discontinued busPIRone HCl 5 MG Oral Tablet (Buspar)Indicatio ns:Anxiety and depression Take 1 Tablet by mouth 2 times a day. 60 Tablet 1 10/06/2021 11/30/2023 Discontinued documented as of this encounter (statuses as of 11/30/2023) Active Problems Problem Noted Date Diagnosed Date Primary osteoarthritis of right knee 10/06/2021 Seasonal allergies 10/06/2021 Encounter for surveillance of abnormal nevi 01/26 Overview: Mildly dysplastic (R upper back, L buttock) Anxiety and depression 12/26/2016 documented as of this encounter (statuses as of 11/30/2023) Immunizations Name Administration Dates Next Due COVID-19 mRNA, LNP-s, No Pre serve, 2-Dose Series (Moderna) 01/25/2021,12/28/2020 Seasonal Influenza, Quadriva lent, No Preserve, IM 09/09/2019,09/13/2018,09/18/2017 Seasonal Influenza, Split, I IV3, With Preserve, Inj 09/07/2016 TDAP (age 10 and older)(Boostrix) 12/26/2016 documented as of this encounter Social History Tobacco Use Types Packs/Day Years Used Date Smoking Tobacco: Never Smokeless Tobacco: Never Tobacco Cessation:Counseling Given: Not Answered Alcohol Use Standard Drinks/Week Comments Yes 0 (1 standard drink = 0.6 oz pur e alcohol) ocassionally AUDIT-C Answer Date Recorded Frequency of Alcohol Consumption 2-4 times a mon06/19/2019 Average Number of Drinks Not on file 019 Frequency of Binge Drinking Not on file 05/28 PHQ-2 Answer Date Recorded PHQ-2 Score 0 09/30/2018 Hunger Vital Sign Answer Date Recorded Within the past 12 months, y ou worried that your food would run out before you got the money to buy more. Never true 11/29/19 24 Within the past 12 months, t he food you bought just didn't last and you didn't have money to get more. Never true 11/29/2023 Sex and Gender Information Value Date Recorded Sex Assigned at Female 11/29/2023 6:35 PM EST Gender Identity Female 11/29/2023 6:35 PM EST Sexual Orientation Straight 11/29/2023 6: 35 PM EST Job Start Date Occupation Industry Not on file Not on file Not on file documented as of this encounter Last Filed Vital Signs Vital Sign Reading Time Taken Comments Blood Pressure 116/76 11/30/2023 9:18 AM EST Pulse 99 11/30/2023 9:18 AM EST Temperature 36.8 C (98.2 F) 11/30/2023 9:18 AM ES T Respiratory Rate - - Oxygen Saturation 99% 11/30/2023 9:18 AM EST Inhaled Oxygen Concentration - - Weight 81.2 kg (179 lb) 11/30/2023 9:18 AM EST Height - - Body Mass Index 29.79 06/03/2020 3:19 PM EDT documented in this encounter Progress Notes * Grace Kelly PA-C - 11/30/2023 9:16 AM EST Nursing Notes: Ladi Sprague LPN 11/30/23 0920 Signed Chief Complaint Patient presents with Acute Started with sore throat on for about a week Then on new years started with abd pain, SOB with Activity , nausea, dry heaving, back pain/ body aches, chills, no fevers Tx: ibuprofen Home COVID test 11/28/23 NEG The patient has been properly identified by confirmation of name and date of . Pt here today with abdominal pain. Pt states that she started with a sore throat on Neil. Thislasted about a week. Over the past few days, the abdominal pain started. Pt has bloating, nausea. Pt denies heartburn, belching. Pt vomited once but she made herself. Pt states that the pain is worsewith eating. She hasn't been eating much. The pain goes to her back. Pt denies diarrhea, constipation, blood in stool, black stool, mucus in stool, URI sx, allergy/sinus sx, fever, urinary sx. She has had some chills. Pt states that she does feel slightly SOB. She took a home covid test and it was negative. Review of patient's allergies indicates: Allergen Reactions Penicillins Rash Current Outpatient Medications Medication Sig Dispense Refill Escitalopram Oxalate 10 MG Oral Tablet (Lexapro) TAKE TWO TABLETS BY MOUTH EVERY DAY 180 Tab 0 Escitalopram Oxalate 20 MG Oral Tablet (Lexapro) Take 1 Tablet by mouth daily. 90 Tablet 3 busPIRone HCl 5 MG Oral Tablet (Buspar) Take 1 Tablet by mouth 2 times a day. 60 Tablet 1 No current facility-administered medications for this visit. Past Medical History: Diagnosis Date Anxiety and depression 12/26/2016 Social History Socioeconomic History Marital status: Spouse name: Not on file Number of children: 2 Years of education: Not on file Highest education level: Not on file Occupational History Occupation: [employer] Employer: [employer] Occupation: [employer] Tobacco Use Smoking status: Never Smokeless tobacco: Never Substance and Sexual Activity Alcohol use: Yes Comment: ocassionally Drug use: No Sexual activity: Yes Partners: Male control/protection: Surgical Comment: tubal Other Topics Concern Not on file Social History Narrative Not on file Social Determinants of Health Financial Resource Strain: Not on file Food Insecurity: No Food Insecurity (11/29/2023) Hunger Vital Sign Worried About Running Out of Food in the Last Year: Never true Ran Out of Food in the Last Year: Never true Transportation Needs: Not on file Physical Activity: Not on file Stress: Not on file Social Connections: Not on file Intimate Partner Violence: Not on file Housing Stability: Not on file O:Blood pressure 116/76, pulse 99, temperature 36.8 C (98.2 F), temperature source Tympanic, weight 81.2 kg (179 lb), SpO2 99%, not currently . GENERAL: alert and no distress NECK: supple, no adenopathy EYES: sclera clear HEART: regular rate & rhythm, no murmur, and no gallops LUNGS: chest symmetric with normal AP diameter, no chest deformities noted, no chest wall tenderness, lungs clear to auscultation ABDOMEN: abdomen soft, normal bowel sounds, and no masses or organomegaly. Epigastric and RUQ tenderness. No CVA tenderness. A:Abdominal pain, epigastric (Primary) - Ondansetron HCl 4 MG Oral Tablet; Take 1 Tablet by mouth every 6 hours as needed for Nausea. - CBC WITH WBC DIFFERENTIAL AND ANEMIA REFLEX WORKUP; Future; Expected date: 11/30/2023 - COMPREHENSIVE METABOLIC PANEL; Future; Expected date: 11/30/2023 - LIPASE; Future; Expected date: 11/30/2023 - US ABDOMEN LIMITED; Future; Expected date: 12/07/2023 - Pantoprazole Sodium 20 MG Oral Tablet Delayed Release (Protonix); Take 1 Tablet by mouth in the morning. 30 minutes before the first meal of the day. Do not crush, split or chew the tablet. Will check some labs. Will get US. Start above meds. If the pain worsens, develops fever or other concerning sx, please go to ER [facility]. Any questions/problems, please call. If anything changes, worsens, develops new sx, please call [facility]. Follow Up: Return if symptoms worsen or fail to improve. Grace Kelly PA-C documented in this encounter Nursing Notes * Ladi Sprague LPN - 11/30/2023 9:11 AM EST Chief Complaint Patient presents with Acute Started with sore throat on neil for about a week Then on new years started with abd pain/ bloating, SOB with Activity , nausea, dry heaving, back pain/ body aches, chills, no fevers Tx: ibuprofen Home COVID test 11/28/23 NEG The patient has been properly identified by confirmation of name and date of . documented in this encounter Plan of Treatment Upcoming Encounters Date Type Department Care Team (Late st Contact Info) Description 11/30/2023 1:30 PM EST Imaging Radiology [address] [place] [phone] 12/15/2023 7:15 AM EST Office Visit Gynecology/Obstetrics [facility] [address] [place] [address] Megan Beltran PA-C [address] [place] [address] Pending Results Name Type Priority Associated Diagnoses Date /Time CBC WITH WBC DIFFERENTIAL AND ANEMIA REFLEX WORKUP Lab Routine Abdominal pain, epigastric 11/30/2023 9:33 AM EST COMPREHENSIVE METABOLIC PANEL Lab Routine Abdominal pain, epigastric 11/30/2023 9:33 AM EST LIPASE Lab Routine Abdominal pain, epigastric 11/30/2023 9:33 AM EST Scheduled Orders Name Type Priority Associated Diagnoses Orde r Schedule CBC WITH WBC DIFFERENTIAL AND ANEMIA REFLEX WORKUP Lab Routine Abdominal pain, epigastric Expected: 11/30/2023 (Approximate), Expires: 11/30/2024 COMPREHENSIVE METABOLIC PANEL Lab Routine Abdominal pain, epigastric Expected: 11/30/2023 (Approximate), Expires: 11/29/2024 LIPASE Lab Routine Abdominal pain, epigastric Expected: 11/30/2023 (Approximate), Expires: 11/29/2024 US ABDOMEN LIMITED Medical Imaging Routine Abdominal pain, epigastric Expected: 12/07/2023, Expires: 12/31/2024 Health Maintenance Due Date Last Done Comments Hepatitis B (1 of 3 - 3-dose series) 1985 Hepatitis C Screening 2001 HPV/Co-Test 2013 Depression Screening 06/22/2019 06/22/2018 Cervical Cancer Screening 06/19/2022 Pap Smear 06/19/2022 06/19/2019, 03/08/2017 COVID-19 Vaccine ( season) 2023 01/25/2021, 12/28/2020 Influenza Vaccine (FLU shot) (#1) 2023 09/09/2019, 09/13/2018, 09/18/2017, Additional history exists Mammogram 2023 Lipid Panel 11/02/2026 11/02/2021 DTaP,Tdap,and Td Vaccines (2 - Td or [...] as of this encounter Visit Diagnoses Diagnosis Abdominal pain, epigastric- Primary documented in this encounter Care Teams Pricing/Signage Team Member Relationship Specialty Start Date End Date Lety Daigle DO [address] [place] [address] [place] [address] PCP - General Internal Medicine 01/14/19 documented as of this encounter
--- OUTSIDE RECORDS SUMMARY | 2023-11-30 22:59 | External Medical Summary | Summary of Care ---
Author Name Unknown Organization [facility] Address [address] [place] [address] Phone [phone] Care Team Providers Care State Superintendent [employer] Name Role Phone Lety Daigle Primary Care Provider Reason for Visit * Reason Onset Date Comments Appointment 08/02/2023 MRI Encounter Details Date Type Department Care Team Description 08/02/2023 Telephone Rad[address] [facility] [place] [address] Clair Kennedy, RT (M) Appointment (MRI) Allergies Active Allergy Reactions Severity Noted Date Comments Penicillins Rash 12/26/2016 documented as of this encounter (statuses as of 08/02/2023) Medications Medication Sig Dispensed Refills Start Date [...] as of this encounter (statuses as of 08/02/2023) Active Problems Problem Noted Date Primary osteoarthritis of right knee 08/2021 Seasonal allergies 10/06/2021 Encounter for surveillance of abnormal n alexandra 02/16/2017 Overview: Mildly dysplastic (R upper back, L buttock) Anxiety and depression 12/26/2016 documented as of this encounter (statuses as of 08/02/2023) Immunizations Name Administration Dates Next Due COVID-19 [...] on file documented as of this encounter Miscellaneous Notes * Telephone Encounter - Clair Kennedy, RT (M) - 08/02/2023 11:59 AM EDT If you answer "yes" to any of the following, please give us a call at before coming to your MRI appointment: Do you have a pacemaker/defibrillator? Do you have any electronic or mechanical implants? Have you had a recent colonoscopy in the last 30 days? Are you or ? Do you work around metal or ever gotten metal in your eyes? Any dermals or body piercing you cannot remove? Do you wear an insulin pump or diabetic monitor? Have you had any tattoos or permanent makeup in the last 4 weeks? LM to arrive at 6:30 AM on 08/07/23 documented in this encounter Plan of Treatment Upcoming Encounters Date Type Specialty Care Team Description 08/07/2023 Imaging Radiology 09/09/2023 Office Visit Gynecology Obstetrics Gissell Aguilar PA-C [address] [place] [address] 12/15/2023 Office Visit Gynecology Obstetrics Megan Beltran PA-C [address] [facility] [place] [address] Health Maintenance Due Date Last Done Comments [...] Not on filedocumented as of this encounter Care Teams State Superintendent [employer] Relationship Specialty Start Date End Date Lety Daigle, [address] [place] [phone] PCP - General Internal Medicine 01/14/19 documented as of this encounter
--- OUTSIDE RECORDS SUMMARY | 2023-11-30 22:59 | External Medical Summary ---
Author Name Unknown Address Unknown Organization [id number][place] [place] [address] [place] [address] Laboratory Report Ordering Provider Test Date Status CEZAR ROYAL 07/14/2023 13:54:43 Final Observation Date Value Abnormality Reference (Units ) Status Borrelia burgdorferi IgG and IgM [Interpretation] in Serum by Immunoassay 07/14/2023 13:54:43 Negative Negative Final Performing Location [facility] [place] [place] [address] [facility] [address]
--- OUTSIDE RECORDS SUMMARY | 2023-11-30 22:59 | External Medical Summary | Summary of Care ---
Author Name Unknown Organization [facility] Address [address] [place] [address] Phone [phone] Care Team Providers Care Glove Turner And Former Automatic Name Role Phone Leyt Daigle Primary Care Provider Reason for Visit * Reason Onset Date Comments Films 08/09/2023 Encounter Details Date Type Department Care Team Description 08/09/2023 Telephone Radiology Film File [address] [place], [place] [phone] Yolanda Ni MD [address] [place] [address] Films Allergies Active Allergy Reactions Severity Noted Date Comments Penicillins Rash 12/26/2016 documented as of this encounter (statuses as of 08/09/2023) Medications Medication Sig Dispensed Refills Start Date [...] as of this encounter (statuses as of 08/09/2023) Active Problems Problem Noted Date Primary osteoarthritis of right knee 08/2021 Seasonal allergies 10/06/2021 Encounter for surveillance of abnormal n alexandra 02/16/2017 Overview: Mildly dysplastic (R upper back, L buttock) Anxiety and depression 12/26/2016 documented as of this encounter (statuses as of 08/09/2023) Immunizations Name Administration Dates Next Due COVID-19 [...] encounter Miscellaneous Notes * Telephone Encounter - DMITRIY An - 08/09/2023 4:08 PM EDT [facility] Orthopedics department requesting 08-07-23 MRI images be pushed through PACS. [place] Authorization to Release on file. Images pushed to [facility] PACS external connection. Report(s) faxed to Orthopedics - [phone]. Successful fax confirmation received. documented in this encounter Plan of Treatment Upcoming Encounters Date Type Specialty Care Team Description 09/09/2023 Office Visit Gynecology Obstetrics Gissell Aguilar PA-C [address] [place] [address] 12/15/2023 Office Visit Gynecology Obstetrics Megan Beltran PA-C [address] [place] [address] Health Maintenance Due Date Last Done Comments Hepatitis B (1 of 3 - 3-dose series) 1985 Hepatitis C Screening 2001 HPV/Co-Test 2013 Depression Screening 06/22/2019 06/22/2018 COVID-19 Vaccine (3 - Moderna [...] filedocumented as of this encounter Care Teams Glove Turner And Former Automatic Relationship Specialty Start Date End Date Lety Daigle[address] [place] [address] PCP - General Internal Medicine 01/14/19 documented as of this encounter
--- OUTSIDE RECORDS SUMMARY | 2023-11-30 22:59 | External Medical Summary | Summary of Care ---
Author Name Unknown Organization [facility] Address [address] [place] [address] Phone [phone] Care Team Providers Care Vp Informatics Name Role Phone DaigleYonatanLety Manuel Primary Care Provider Reason for Visit * Reason Comments Outpatient Testing Encounter Details Date Type Department Care Team Description 07/14/2023 Laboratory Laboratory [address] [place] [phone] [address] [place] [address] Swelling of left knee joint Allergies Active [...] Thomas MD [address] [place] [address] Pending Results Name Type Priority Associated Diagnoses [...] joint documented in this encounter Care Teams Vp Informatics Relationship Specialty Start Date End Date Lety Daigle, [address] [place] [phone] PCP - General Internal Medicine 01/14/19 documented as of this encounter
--- OUTSIDE RECORDS SUMMARY | 2023-11-30 22:59 | External Medical Summary | Summary of Care ---
Author Name Unknown Organization [facility] Address [address] [place] [address] Phone [phone] Care Team Providers Care Dopeman Name Role Phone DaigleYonatanLety Mar ROTH Primary Care Provider Reason for Visit * Reason Comments Outpatient Testing Encounter Details Date Type Department Care Team (Late st Contact Info) Description 11/30/2023 9:40 AM EST Laboratory Laboratory [address] [place] [phone] [place] [address] Abdominal pain, epigastric Allergies Active Allergy Reactions Criticality Noted Date Comments Penicillins Rash 12/26/2016 documented as of this encounter (statuses as of 11/30/2023) Medications Medication Sig Dispensed Refills Start Date End Date Status Escitalopram Oxalate 10 MG Oral Tablet (Lexapro)Indications: Moderate episode of recurrent major depressive disorder (HCC) TAKE TWO TABLETS BY MOUTH EVERY DAY 180 Tab 0 07/07/2021 Active Amphetamine-Dextroamp het ER 20 MG Oral Capsule Extended Release 24 Hour (Adderall XR) Take 1 Capsule by mouth in the morning. Every morning.. 0 11/08/2023 Active Ondansetron HCl 4 MG Oral TabletIndications:Abd ominal pain, epigastric Take 1 Tablet by mouth every 6 hours as needed for Nausea. 30 Tablet 0 11/30/2023 Active Pantoprazole Sodium 20 MG Oral Tablet Delayed Release (Protonix)Indications :Abdominal pain, epigastric Take 1 Tablet by mouth in the morning. 30 minutes before the first meal of the day. Do not crush, split or chew the tablet. 30 Tablet 5 11/30/2023 Active documented as of this encounter (statuses [...] Care Team (Late st Contact Info) Description 12/15/2023 7:15 AM EST Office Visit Gynecology/Obstetrics Lawrence Luong [address] [place] [address] Megan Beltran PA-C [address] [place] [id number] Pending Results Name Type Priority Associated Diagnoses Date /Time CBC WITH WBC DIFFERENTIAL AND ANEMIA REFLEX WORKUP Lab Routine Abdominal pain, epigastric 11/30/2023 9:33 AM EST COMPREHENSIVE METABOLIC PANEL Lab Routine Abdominal pain, epigastric 11/30/2023 9:33 AM EST LIPASE Lab Routine Abdominal pain, epigastric 11/30/2023 9:33 AM EST ANEMIA CBC Lab Routine Abdominal pain, epigastric 11/30/2023 9:33 AM EST DIFFERENTIAL, AUTOMATED Lab Routine Abdominal pain, epigastric 11/30/2023 9:33 AM EST ANEMIA REFLEX CHEMISTRY HOLD Lab Routine Abdominal pain, epigastric 11/30/2023 9:33 AM EST Health Maintenance Due Date Last Done Comments [...] this encounter Visit Diagnoses Diagnosis Abdominal pain, epigastric documented in this encounter Care Teams Dopeman Relationship Specialty Start Date End Date Lety Daigle DO [address] [place] [address] [place] [id number] PCP - General Internal Medicine 01/14/19 documented as of this encounter
--- OUTSIDE RECORDS SUMMARY | 2023-11-30 22:59 | External Medical Summary | Summary of Care ---
Author Name Unknown Organization [facility] Address [address] [place] [address] Phone [phone] Care Team Providers Care Buyer Broker Name Role Phone Lety Daigle Primary Care Provider Reason for Referral * Precert (Within 10 days (routine)) - Pending Review Specialty Diagnoses / Procedures Referred By Jorge cornelius Referred To Contact Radiology Diagnoses Effusion, left knee Pain in unspecified knee Procedures MRI KNEE LEFT WO CONTRAST Yolanda Ni MD [address] [place] [address] Referral ID Status Reason Start Date Expiration Date V isits Requested Visits Authorized [id number] Pending Review 07/14/[phone] Encounter Details Date Type Department Care Team Description 07/14/2023 Orders Only Radiology, [address] [address] Requisition, External Radiology [address] [place] [address] Effusion, left knee*; Pain in unspecified knee Allergies Active Allergy Reactions Severity Noted Date [...] Thomas MD [address] [place] [address] Scheduled Orders Name Type Priority Associated Diagnoses Orde r Schedule MRI KNEE LEFT WO CONTRAST Medical Imaging Routine Effusion, left knee Pain in unspecified knee Expected: 07/14/2023, Expires: 08/14/2024 Health Maintenance Due Date Last Done Comments [...] as of this encounter Visit Diagnoses Diagnosis Effusion, left knee- Primary Pain in unspecified knee documented in this encounter Care Teams Buyer Broker Relationship Specialty Start Date End Date Lety Daigle, [address] [place] [address] PCP - General Internal Medicine 01/14/19 documented as of this encounter
[2023-12-01] MEDS: metroNIDAZOLE 500 MG/100 ML BAG IV SCH ×3 (03:02→18:28)
[2023-12-01] MEDS: KETOROLAC 30 MG/ML VIAL IV PRN ×3 (03:07→20:00)
[2023-12-01] MEDS: NSS + 20MEQ KCL 20 MEQ/1,000 ML BAG IV SCH ×3 (03:44→23:29)
[2023-12-01] MEDS: CEFEPIME 2,000 MG in SYRINGE 0 ML IV SCH ×3 (05:54→23:30)
[2023-12-01 06:10] LABS: Basophils # (auto) 0.05 K/uL (0.00-0.20); Basophils % (auto) 0.4 %; Eosinophils # (auto) 0.16 K/uL (0.00-0.50); Eosinophils % (auto) 1.3 %; Hematocrit (blood only) 30.5 % (37.0-47.0); Immature Granulocytes # (auto) 0.06 K/uL (0.01-0.20); Immature Granulocytes % (auto) 0.5 %; Lymphocytes # (auto) 0.97 K/uL (1.20-3.40); Lymphocytes % (auto) 7.8 %; Mean Corpuscular Hemoglobin 27.1 pg (25.0-34.0); Mean Corpuscular Hgb Conc 32.8 g/dL (32.0-36.0); Mean Corpuscular Volume 82.7 fL (80.0-100.0); Mean Platelet Volume 10.8 fL (9.4-12.4); Monocytes # (auto) 0.73 K/uL (0.11-0.59); Monocytes % (auto) 5.8 %; Neutrophils # (auto) 10.53 K/uL (1.40-6.50); Neutrophils % (auto) 84.2 %; Platelet Count 213 K/uL (130-400); RDW Coefficient of Variation 13.3 % (11.5-14.5); RDW Standard Deviation 40.4 fL (36.4-46.3); Red Blood Count 3.69 M/uL (4.20-5.40)
[2023-12-01 06:27] LABS: Albumin Globulin Ratio 1.2 (0.9-2); BUN Creatinine Ratio 15.4 (10-20); Bilirubin,Total 1.9 mg/dl (0.2-1.0); Creatinine Clr Calc Pharmacy 155.6 ml/min; Est GFR (African American) 138.5 ml/min; Est GFR (Non-African American) 119.5 ml/min; Globulin 2.6 gm/dl (2.5-4.0); Potassium 3.9 mmol/L (3.5-5.1); Total Protein 5.6 gm/dl (6.0-8.3)
--- NOTE | 2023-12-01 07:53 | Anesthesiology Consultation ---
Date of Service December 01, 2023 Assessment & Plan (1) Encounter for pre-operative examination: Chart Review Chart Review: Acceptable Risk for Surgery and Patient NOT seen in Pre Admission Testing Consults Requested none History Surgery Operation Date: 12/01/23 07:10 Proposed Procedures p Laparoscopic Cholecystectomy - Cj Buenrostro DO Height/Weight Height: 5 ft 6 in Weight: 80 kg Allergies Allergy/AdvReac Type Severity Reaction Status Date / Time Penicillins Allergy Unknown Unknown Verified 11/30/23 15:20 Medications Home Medications Medication Instructions Recorded Confirmed Last Taken escitalopram oxalate 10 mg tablet 10 mg PO DAILY 07/13/23 11/30/23 Unknown dextroamphetamine-amphetamine ER 20 mg PO QAM 11/30/23 11/30/23 Unknown 20 mg 24hr capsule,extend release Active Medications Generic Name Dose Route Start Last Admin Trade Name Freq PRN Reason Stop Dose Admin Escitalopram Oxalate 10 mg 11/30/23 21:00 11/30/23 22:14 Escitalopram Oxalate 10 Mg Tab PO 12/30/23 20:59 10 mg HS RAMSEY Administration Potassium Chloride/Sodium Chloride 20 meq in 1,000 mls @ 110 mls/hr 11/30/23 18:00 12/01/23 03:44 Normal Saline W/20 Meq Kcl IV 12/30/23 17:59 110 mls/hr .Q9H6M RAMSEY Administration Cefepime HCl 2,000 mg/ Syringe 20 mls @ 5 mls/min 11/30/23 22:00 12/01/23 05:54 IV 12/10/23 21:59 5 mls/min Q8H RAMSEY Administration Protocol Metronidazole 500 mg in 100 mls @ 100 mls/hr 11/30/23 19:00 12/01/23 04:08 Flagyl IV 12/10/23 18:59 Infused Q8H RAMSEY Infusion Protocol Ketorolac Tromethamine 30 mg 11/30/23 18:00 12/01/23 03:07 Ketorolac 30 Mg/Ml Vial IV 12/05/23 17:59 30 mg Q6H PRN Administration Moderate Pain (Scale 4, 5, 6) Past Medical History Medical History Seasonal allergies Depression with anxiety Past Family History Family History Other Diabetes Past Surgical History Surgical History Hx of tubal ligation Social History Smoking Status: Never smoker Hx Alcohol Use: No Hx Substance Use: No Physical Exam Vital Signs Last Vital Signs Temp 97.9 F 11/30/23 11:52 Pulse 77 12/01/23 06:04 Resp 18 12/01/23 06:04 BP 112/58 L 12/01/23 06:04 Pulse Ox 98 12/01/23 06:04 O2 Del Method Room Air 12/01/23 06:04 Testing Laboratory Results 12/01/23 05:39 12/01/23 05:39 HCG, Quant < 1 mIU/ml 11/30/23 12:00 Urine Color [place] 11/30/23 12:00 Urine Appearance Cloudy (Clear) A 11/30/23 12:00 Urine pH 6.0 (4.5-7.5) 11/30/23 12:00 Ur Specific [place] > 1.045 (1.000-1.030) H 11/30/23 12:00 Urine Protein 2+ (Negative) H 11/30/23 12:00 Urine Glucose (UA) Trace (Negative) H 11/30/23 12:00 Urine Ketones Trace (Negative) H 11/30/23 12:00 Urine Nitrite Positive (Negative) A 11/30/23 12:00 Ur Leukocyte Esterase 1+ (Negative) H 11/30/23 12:00 Urine WBC (Auto) >30 /hpf (0-5) H 11/30/23 12:00 Urine RBC (Auto) 0-4 /hpf (0-4) 11/30/23 12:00 U Hyaline Cast (Auto) 5-10 /lpf (0-5) H 11/30/23 12:00 U Epithel Cells (Auto) >30 /lpf (0-5) H 11/30/23 12:00 Urine Bacteria (Auto) 2+ (Negative) H 11/30/23 12:00 11/30/23 12:00 HCG, Quant < 1 Electrocardiogram Date: 11/30/23 Findings: + NSR @
[2023-12-01] MEDS ORDERED: BUPIVACAINE/EPINEPHRINE 0.25% 1:200,000 30 ML VIAL ONE (08:22)
[2023-12-01] MEDS ORDERED: MIDAZOLAM HCL 1 MG/ML 2ML VIAL ONE (08:35)
[2023-12-01] MEDS ORDERED: PROPOFOL IV EMULSION 10 MG/ML 20 ML VIAL IV ONE (08:35)
[2023-12-01] MEDS ORDERED: ONDANSETRON INJ 2 MG/ML 2 ML VIAL ONE (08:35)
[2023-12-01] MEDS ORDERED: ROCURONIUM BROMIDE 10 MG/ML 5 ML VIAL IV ONE (08:35)
[2023-12-01] MEDS ORDERED: GLYCOPYRROLATE 0.2 MG/ML VIAL ONE (08:35)
[2023-12-01] MEDS ORDERED: NEOSTIGMINE METHYLSULFATE 1 MG/ML 10ML VIAL ONE (08:35)
[2023-12-01] MEDS ORDERED: LIDOCAINE 2% 2 ML VIAL/AMP(20MG/ML) INFIL ONE (08:35)
[2023-12-01] MEDS ORDERED: fentaNYL citrate PF 100 MCG/2 ML VIAL ONE ×3 (08:36→10:34)
[2023-12-01] MEDS ORDERED: DEXAMETHASONE SOD INJ 4 MG/ML VIAL ONE (08:38)
[2023-12-01] MEDS ORDERED: ONDANSETRON INJ 2 MG/ML 2 ML VIAL IV PRN (08:47)
[2023-12-01] MEDS ORDERED: ATROPINE SULFATE 0.1 MG/ML 10ML SYR IV PRN (08:47)
[2023-12-01] MEDS ORDERED: ePHEDrine sulfate 50 MG/ML AMP IV PRN (08:47)
[2023-12-01] MEDS ORDERED: LACTATED RINGER'S 1,000 ML IV SCH (09:00)
--- NOTE | 2023-12-01 09:24 | Gastrointestinal Consultation ---
Date of Consultation December 01, 2023 Assessment & Plan (1) Elevated liver enzymes: 38 year old female admitted w/ gallstones, imaging concerning for acute cholecystitis, MRCP w/o CBD stones, however, elevated transaminases. Transfer was recommend for ERCP given no biliary coverage available today at [facility]. She is awaiting a bed at a tertiary center. Agree with [facility]X [facility]Y per general surgery As no biliary coverage is available today, consider IOC as MRCP is without stones and LFTs are downtrending If IOC positive, she will need to be transferred to a tertiary center If IOC negative, and she is without s/s of cholangitis, may keep at [facility] and continue to trend LFTs Thank you for allowing us to participate in the care of this patient. Please call with any acute changes, questions or concerns. Please see addendum below with additional recommendation from my supervising physician. Supervising Physician Co-Signing Physician Notes I did not see this patient today as she has been in the OR for cholecystectomy. I agree with the findings and plan of care as detailed above by SUSY Vargas. Melida Benito, Gastroenterology and Hepatology History of Present Illness Reason for Consultation: acute cholecystitis, suspected choledocho, pending transfer Requesting Physician: Linwood Attending Physician: Yudi Palumbo MD History of Present Illness Pt was not available for consultation this AM - she is out of room in the OR. Chart was reviewed for the purpose of consultation completion. 38 year old female with who was admitted through the ED for abdominal pain - GI was asked to evaluate given her imaging and laboratory findings. Attending was consulted last evening who at the time recommend transfer for ERCP evaluation, however, she was unable to be transferred as there were no available beds. She was admitted to [facility] for management of cholecystitis. MRI imaging shows gallstones w/ GB wall thickening and fluid but no report of CBD stones. Her LFTS were elevated on admission, however, are slightly downtrending this AM. MRCP 2022: Cholelithiasis with a markedly thickened gallbladder wall and pericholecystic fluid/edema. There is a 7 mm stone at the gallbladder neck/cystic duct. This likely accounts for the suspected acute cholecystitis. Urgent surgical consultation recommended. No evidence for choledocholithiasis. TBili 2 --> 1.9 AST 148 --> 83 ALT 166 --> 125 ALKP 189 --> 179 Lipase 15 --> 19 Allergies Allergy/AdvReac Type Severity Reaction Status Date / Time Penicillins Allergy Unknown Unknown Verified 11/30/23 15:20 Home Medications Medication Instructions Recorded Confirmed Type escitalopram oxalate 10 mg tablet 10 mg PO DAILY 07/13/23 11/30/23 History dextroamphetamine-amphetamine ER 20 mg PO QAM 11/30/23 11/30/23 History 20 mg 24hr capsule,extend release Patient History Medical History Seasonal allergies Depression with anxiety Surgical History Hx of tubal ligation Family History Other Diabetes Social History Smoking Status: Never smoker Hx Alcohol Use: No Hx Substance Use: No Preferred Language: [place] Citizen Communication Ability: Effective marital status: Current Living Situation: Spouse Feels Safe at Home: Yes Review of Systems Review of Systems: Unable to complete as patient is in the OR Physical Exam Physical Exam: Unable to complete as patient is in the OR Results & Data Vital Signs (Past 12 Hours) Vital Signs Temp Pulse Pulse Resp BP BP Pulse Ox 12/01/23 08:26 36.9 C 96 H 16 126/70 96 12/01/23 06:04 77 18 112/58 L 98 12/01/23 04:00 81 18 113/66 94 11/30/23 22:18 96 H 18 110/54 L 99 O2 Del Method 12/01/23 08:26 Room Air 12/01/23 06:04 Room Air 12/01/23 04:00 Room Air 11/30/23 22:18 Room Air Laboratory Results 12/01/23 11/30/23 11/30/23 Range/Units 05:39 17:51 12:00 WBC 12.50 H 16.04 H (4.8-10.8) K/ul RBC 3.69 L 5.02 (4.20-5.40) M/uL Hgb 10.0 L D 13.2 (12.0-16.0) g/dl Hct 30.5 L 41.3 (37.0-47.0) % MCV 82.7 82.3 (80.0-100.0) fL MCH 27.1 26.3 (25.0-34.0) pg MCHC 32.8 32.0 (32.0-36.0) g/dL RDW Std Deviation 40.4 39.4 (36.4-46.3) fL RDW Coeff of Yasmin 13.3 13.2 (11.5-14.5) % Plt Count 213 290 (130-400) K/uL MPV 10.8 10.9 (9.4-12.4) fL Immature Gran % (Auto) 0.5 0.4 % Neut % (Auto) 84.2 84.3 % Lymph % (Auto) 7.8 7.9 % [place] % (Auto) 5.8 5.4 % Eos % (Auto) 1.3 1.6 % Baso % (Auto) 0.4 0.4 % Neut # (Auto) 10.53 H 13.51 H (1.40-6.50) K/uL Lymph # (Auto) 0.97 L 1.27 (1.20-3.40) K/uL [place] # (Auto) 0.73 H 0.87 H (0.11-0.59) K/uL Eos # (Auto) 0.16 0.25 (0.00-0.50) K/uL Baso # (Auto) 0.05 0.07 (0.00-0.20) K/uL Immature Gran # (Auto) 0.06 0.07 (0.01-0.20) K/uL Sodium 138 138 (136-145) mmol/L Potassium 3.9 3.7 (3.5-5.1) mmol/L Chloride 107 101 (98-107) mmol/L Carbon Dioxide 26 30 (21-32) mmol/L Anion Gap 5 7 (3-11) BUN 8 9 (6-23) mg/dl Creatinine 0.52 L 0.62 (0.6-1.2) mg/dl Est Cr Clr Drug Dosing 155.6 130.5 ml/min Est GFR ( Amer) 138.5 130.7 ml/min Est GFR (Non-Af Amer) 119.5 112.8 ml/min BUN/Creatinine Ratio 15.4 14.5 (10-20) Glucose 93 100 H (70-99(Fasting)) mg/dl Lactate 0.4 (0.4-2.0) mmol/L Calcium 8.0 L 9.6 (8.6-10.3) mg/dl Magnesium 2.0 (1.7-2.4) mg/dl Total Bilirubin 1.9 H 2.0 H (0.2-1.0) mg/dl AST 83 H 148 H (13-39) U/L ALT 125 H 166 H (7-52) U/L Alkaline Phosphatase 179 H 189 H (34-104) U/L Total Protein 5.6 L D 7.6 (6.0-8.3) gm/dl Albumin 3.0 L 4.1 (3.4-5.0) gm/dl Globulin 2.6 3.5 (2.5-4.0) gm/dl Albumin/Globulin Ratio 1.2 1.2 (0.9-2) Lipase 19 15 (11-82) U/L HCG, Quant < 1 mIU/ml Urine Color [place] Urine Appearance Cloudy A (Clear) Urine pH 6.0 (4.5-7.5) Ur Specific [place] > 1.045 H (1.000-1.030) Urine Protein 2+ H (Negative) Urine Glucose (UA) Trace H (Negative) Urine Ketones Trace H (Negative) Urine Blood Negative (Negative) Urine Nitrite Positive A (Negative) Urine Bilirubin 3+ H (Negative) Urine Urobilinogen Positive H (Negative) Ur Leukocyte Esterase 1+ H (Negative) Urine WBC (Auto) >30 H (0-5) /hpf Urine RBC (Auto) 0-4 (0-4) /hpf U Hyaline Cast (Auto) 5-10 H (0-5) /lpf U Epithel Cells (Auto) >30 H (0-5) /lpf Urine Bacteria (Auto) 2+ H (Negative) Urine Mucus Present A (None Prsent)
--- NOTE | 2023-12-01 09:37 | History & Physical Bridge Note ---
Date of Service December 01, 2023 History & Physical Bridge Note I have examined the patient, reviewed the History & Physical and in the interval since the performance of the History & Physical I have noted the following changes of clinical significance: no changes noted
[2023-12-01] MEDS ORDERED: FLOSEAL HEMOSTATIC MATRIX 10ML TOP ONE (10:58)
[2023-12-01] MEDS ORDERED: SUGAMMADEX SODIUM 200 MG/2 ML VIAL IV ONE (11:19)
--- NOTE | 2023-12-01 11:33 | Post Operative Brief Note ---
PG Immediate Post Op with CF Date of Surgery December 01, 2023 Pre & Post Diagnosis Operation Date: 12/01/23 07:10 Pre-Op Diagnosis: Acute Cholecystitis, Elevated LFT's Post-Op Diagnosis: Acute Cholecystitis, Elevated LFT's I identified the patient and participated in the time-out.: Yes Procedure Operation Date: 12/01/23 07:10 Actual Procedures p Laparoscopic Cholecystectomy(Not Applicable) - Cj Buenrostro DO Surgeon Cj Buenrostro DO Tactical Response Group Officer Brisa JAIN Estimated Blood Loss 25 Findings See Below Acutely inflamed, dilated gallbladder with thickened wall Dense omental adhesions and fat wrapping Specimens Specimen Description: A. Gallbladder Anesthesia Type General Complications none Disposition Disposition: Recovery Room
--- NOTE | 2023-12-01 11:39 | Operative Report ---
PG Post Operative Report Pre & Post Diagnosis Operation Date: 12/01/23 07:10 Pre-Op Diagnosis: Acute Cholecystitis, Elevated LFT's Post-Op Diagnosis: Acute Cholecystitis, Elevated LFT's I identified the patient and participated in the time-out.: Yes Procedure Operation Date: 12/01/23 07:10 Actual Procedures p Laparoscopic Cholecystectomy(Not Applicable) - Cj Buenrostro DO Surgeon Cj Buenrostro DO Manager Protein Brisa JAIN Estimated Blood Loss 25 Findings See Below Acutely inflamed, dilated gallbladder with thickened wall Dense omental adhesions and fat wrapping Fluids see anesthesia record Specimens Gallbladder to pathology Drains None Anesthesia Type General Complications none Disposition Disposition: Recovery Room Indications 38 yo female with acute cholecystitis, elevated LFT's Description of Procedure The patient was brought to the operating room and placed in the supine position with both arms extended. At this time she underwent general endotracheal anesthesia without any problems. She was given appropriate pre-operative an tibiotics. Her abdomen prepped and draped in the usual sterile fashion. A timeout was called, the procedure was verified as Laparoscopic cholecystectomy, possible open, possible intra-operative cholangiogram. Surgical, nursing and anesthesia teams agreed and the procedure was begun. After injection of 0.25% Marcaine with epinephrine, a supraumbilical vertical incision was made and carried down to the fascia using S-retractors. The abdominal wall was then elevated with towel clamps and abdomen entered using the Veress needle confirming position using the saline drop test. Pneumoperitoneum was established. 5mm trocar was placed. Laparoscope was introduced. No injury from entry into the abdomen was visualized after inspection of the abdomen. Three further ports were placed under direct visualization. One 11mm in the subxiphoid region and two 5mm in the RUQ. At this time the abdomen was inspected and the gallbladder identified. There were dense omental adhesions and fat wrapping of approximately 3/4 of the length of the gallbladder. These were taken down with blunt and sharp dissection. The gallbladder itself was thick walled, edematous and dilated consistent with acute cholecystitis. The gallbladder fundus was grasped and retracted cephalad. The gallbladder infundibulum was then grasped and retracted laterally. The cystic duct and cystic artery were then identified and skeletonized. The critical view of safety was obtained. They were both then clipped twice proximally and once distally and then divided using scissors. The gallbladder was then taken off of the liver bed using electrocautery and placed in an endocatch bag and removed from the subxiphoid port. The liver bed was then inspected and no bile leak or bleeding was evident. 10 mL of FloSeal hemostatic agent was placed in the gallbladder fossa. The subxiphoid port was then closed using 0-Vicryl using the suture passer. The trocars were then removed under direct visualization and no bleeding was present. Abdomen was desufflated. The skin was then closed using 4-0 Monocryl in a subcuticular fashion. Surgical glue was applied. Needle and sponge counts were correct x 2. At this time the patient was awoken from anesthesia and extubated having remained stable throughout the entire case. The patient was then transported to PACU in stable condition. The nurse practitioner was present and scrubbed for the entire case. She was essential in positioning, prepping and draping the patient, driving the laparoscope, retraction and exposure, closure of the incisions and placement of the dressings. I attest to the content of the Intraoperative Record and any orders documented therein. Any exceptions are noted below.
[2023-12-01] MEDS: fentaNYL citrate PF 100 MCG/2 ML VIAL IV PRN ×4 (11:55→12:10)
--- OUTSIDE RECORDS SUMMARY | 2023-12-01 12:12 | External Medical Summary | Summary of Care ---
Author Name Unknown Organization [facility] Address [address] [place] [address] Phone [phone] Care Team Providers Care Hot Plate Plywood Press Laborer Name Role Phone Daigle, Letytiago Manuel Primary Care Provider Reason for Visit * Reason Onset Date Comments Films 11/30/2023 Encounter Details Date Type Department Care Team (Late st Contact Info) Description 11/30/2023 Telephone Rad[address] [place] [address] Eloisa Moreland, RT Films Allergies Active Allergy Reactions Criticality Noted Date [...] encounter Miscellaneous Notes * Telephone Encounter - Eloisa Moreland RT - 11/30/2023 10:47 AM EST Patient going to ER after having abdomen ultrasound done on 11/30/22. Images pushed to [facility] per ordering provider. documented in this encounter Plan of Treatment Upcoming Encounters Date Type Department Care Team (Late st Contact Info) Description 12/15/2023 7:15 AM EST [facility] [address] [place] [address] Megan Beltran PA-C [address] [place] [address] Health Maintenance Due Date Last Done Comments [...] filedocumented as of this encounter Care Teams Hot Plate Plywood Press Laborer Relationship Specialty Start Date End Date Lety Daigle DO [address] [place] [address] [place] [id number] PCP - General Internal Medicine 01/14/19 documented as of this encounter
[2023-12-01] MEDS ORDERED: MoRPHine SULFATE 4 MG/ML 1 ML CARP\\VIAL IV PRN (13:02)
[2023-12-01] MEDS ORDERED: MoRPHine SULFATE 2 MG/ML CARP IV PRN (13:02)
--- NOTE | 2023-12-01 16:57 | Hospitalist Progress Note ---
Date of Service December 01, 2023 Assessment & Plan (1) Sepsis: (2) Acute cholecystitis: (3) Transaminitis: (4) Abdominal pain: (5) Abnormal urinalysis: Plan Ms. Tang is a 38-year-old female who has a significant past medical history of depression with anxiety, seasonal allergies and ADHD who presents to ED secondary to abnormal abdominal ultrasound as outpatient and abdominal pain. She was noted to have obstructing stone and acute cholecystitis, and admitted for management of sepsis and acute obstructive cholecystitis. #Sepsis, POA *improving #Acute cholecystitis s/p lap anika 12/01/2023 #Transaminitis OP US: Cholelithiasis, gallbladder wall thickening, positive Abreu sign concerning for acute cholecystitis, CBD dilated to 8 mm Obtain MRCP to rule out obstruction ED provider discussed with on-call gastroenterology MRCP performed Cholelithiasis with a markedly thickened gallbladder wall and pericholecystic fluid/edema. There is a 7 mm stone at the gallbladder neck/cystic duct. This likely accounts for the suspected acute cholecystitis. Urgent surgical consultation recommended. 2. No evidence for choledocholithiasis. Discussed with General Surgery Dr. Cj Buenrostro as well as [facility] Transfer center team Dr. Pineda CULP and Dr Yo gen surg of [place] All were in agreement to transfer pt to tertiary given lack of biliary coverage on site Given delay in transfer and downtrend in lfts, cholecystectomy performed If LFTS rise, will transfer in am 12/02 -Continue antibiotics with IV cefepime and IV Flagyl CLD Pain control with IV Tylenol mild pain, IV Toradol moderate pain, IV Dilaudid severe pain Trend CMP in am #Abnormal urinalysis Urinalysis concerning for possible infection Patient denies any symptoms, has previous history of urinary tract infection with symptoms Currently on antibiotics as above, await urine culture #Depression with anxiety ADHD chronic, stable Continue escitalopram Hold dextroamphetamine while inpatient DVT prophylaxis: SCDs due to likely upcoming procedure, encouraged ambulation Full code PCP: Dr. Daigle Dispo: admit to tele, Transfer contingent on LFTs in am and IOC Admission and Anticipated Discharge Date Admission Date: November 30, 2023 Subjective s/p lap anika Reports feeling sore, but over all better denies nausea vomiting, but just a few hours post operative Physical Exam Constitutional: WD/WN, vitals as above Respiratory: normal respiratory effort, lungs clear to auscultation Cardiovascular: RRR, no murmur, no edema Gastrointestinal (Abdomen): normal bowel sounds, soft, nontender, no hepatosplenomegaly Results & Data Results & Data Vital Signs (Past 12 Hours) Vital Signs Temp Pulse Pulse Pulse Resp BP BP 12/01/23 16:08 36.9 C 86 18 12/01/23 15:34 66 12/01/23 14:10 78 18 12/01/23 13:40 79 20 12/01/23 13:10 77 20 12/01/23 12:55 84 18 12/01/23 12:40 80 19 12/01/23 12:30 37.2 C 91 H 18 12/01/23 12:20 89 14 12/01/23 12:10 96 H 19 12/01/23 12:00 94 H 20 12/01/23 11:50 104 H 20 12/01/23 11:40 36.6 C 102 H 18 12/01/23 08:26 36.9 C 96 H 16 126/70 12/01/23 06:04 77 18 112/58 L BP Pulse Ox O2 Del Method O2 Flow Rate 12/01/23 16:08 119/75 95 Room Air 12/01/23 15:34 12/01/23 14:10 133/80 98 Nasal Cannula 2 12/01/23 13:40 128/73 98 Nasal Cannula 2 12/01/23 13:10 146/82 H 99 Nasal Cannula 2 12/01/23 12:55 146/90 H 98 Nasal Cannula 2 12/01/23 12:40 141/82 H 99 Nasal Cannula 2 12/01/23 12:30 133/87 96 Nasal Cannula 2 12/01/23 12:20 139/75 99 Nasal Cannula 2 12/01/23 12:10 137/83 93 Room Air 12/01/23 12:00 137/82 94 Room Air 12/01/23 11:50 143/92 H 98 Room Air 12/01/23 11:40 146/86 H 98 Oxymask 5 12/01/23 08:26 96 Room Air 12/01/23 06:04 98 Room Air Laboratory Results Short CBC 12/01/23 Range/Units 05:39 WBC 12.50 H (4.8-10.8) K/ul Hgb 10.0 L D (12.0-16.0) g/dl Hct 30.5 L (37.0-47.0) % Plt Count 213 (130-400) K/uL BMP 12/01/23 05:39 Sodium 138 Potassium 3.9 Chloride 107 Carbon Dioxide 26 BUN 8 Creatinine 0.52 L Glucose 93 Calcium 8.0 L Liver Function 12/01/23 Range/Units 05:39 Total Bilirubin 1.9 H (0.2-1.0) mg/dl AST 83 H (13-39) U/L ALT 125 H (7-52) U/L Alkaline Phosphatase 179 H (34-104) U/L Albumin 3.0 L (3.4-5.0) gm/dl Medications Administered Home Medications Medication Instructions Recorded Confirmed Last Taken escitalopram oxalate 10 mg tablet 10 mg PO DAILY 07/13/23 11/30/23 Unknown dextroamphetamine-amphetamine ER 20 mg PO QAM 11/30/23 11/30/23 Unknown 20 mg 24hr capsule,extend release ciprofloxacin HCl 500 mg tablet 500 mg PO Q12H post surgery 14 12/01/23 Unknown (Cipro) days #28 tabs metronidazole 500 mg tablet 500 mg PO Q12H post operative 12/01/23 Unknown surgery 14 days #28 tabs oxycodone 5 mg tablet 5 - 10 mg (1 - 2 x 5 mg) PO 12/01/23 Unknown .[id number] PRN pain #15 tabs Active Medications Generic Name Dose Route Start Last Admin Trade Name Freq PRN Reason Stop Dose Admin Escitalopram Oxalate 10 mg 11/30/23 21:00 11/30/23 22:14 Escitalopram Oxalate 10 Mg Tab PO 12/30/23 20:59 10 mg HS RAMSEY Administration Potassium Chloride/Sodium Chloride 20 meq in 1,000 mls @ 110 mls/hr 11/30/23 18:00 12/01/23 16:34 Normal Saline W/20 Meq Kcl IV 12/30/23 17:59 110 mls/hr .Q9H6M RAMSEY Administration Cefepime HCl 2,000 mg/ Syringe 20 mls @ 5 mls/min 11/30/23 22:00 12/01/23 15:59 IV 12/10/23 21:59 5 mls/min Q8H RAMSEY Administration Protocol Metronidazole 500 mg in 100 mls @ 100 mls/hr 11/30/23 19:00 12/01/23 12:36 Flagyl IV 12/10/23 18:59 100 mls/hr Q8H RAMSEY Administration Protocol Ketorolac Tromethamine 30 mg 11/30/23 18:00 12/01/23 13:05 Ketorolac 30 Mg/Ml Vial IV 12/05/23 17:59 30 mg Q6H PRN Administration Moderate Pain (Scale 4, 5, 6)
[2023-12-01] MEDS: ACETAMINOPHEN 1,000 MG/100 ML VIAL IV PRN (23:30)
[2023-12-01] MEDS: ESCITALOPRAM OXALATE 10 MG TAB PO SCH (23:30)
[2023-12-02] MEDS: KETOROLAC 30 MG/ML VIAL IV PRN ×4 (04:29→23:00)
[2023-12-02] MEDS: CEFEPIME 2,000 MG in SYRINGE 0 ML IV SCH ×3 (04:29→20:52)
[2023-12-02] MEDS: metroNIDAZOLE 500 MG/100 ML BAG IV SCH ×3 (04:29→18:24)
[2023-12-02 07:23] LABS: Basophils # (auto) 0.04 K/uL (0.00-0.20); Basophils % (auto) 0.4 %; Eosinophils % (auto) 1.1 %; Hematocrit (blood only) 29.1 % (37.0-47.0); Hemoglobin 9.5 g/dl (12.0-16.0); Immature Granulocytes # (auto) 0.05 K/uL (0.01-0.20); Immature Granulocytes % (auto) 0.5 %; Lymphocytes # (auto) 1.58 K/uL (1.20-3.40); Lymphocytes % (auto) 16.9 %; Mean Corpuscular Hemoglobin 26.8 pg (25.0-34.0); Mean Corpuscular Hgb Conc 32.6 g/dL (32.0-36.0); Mean Platelet Volume 10.6 fL (9.4-12.4); Monocytes # (auto) 0.59 K/uL (0.11-0.59); Monocytes % (auto) 6.3 %; Neutrophils # (auto) 7.01 K/uL (1.40-6.50); Neutrophils % (auto) 74.8 %; Platelet Count 239 K/uL (130-400); RDW Coefficient of Variation 13.2 % (11.5-14.5); RDW Standard Deviation 40.1 fL (36.4-46.3); Red Blood Count 3.55 M/uL (4.20-5.40); White Blood Count 9.37 K/ul (4.8-10.8)
[2023-12-02 07:37] LABS: Albumin Level 2.8 gm/dl (3.4-5.0); Bilirubin,Total 0.7 mg/dl (0.2-1.0); Calcium 7.9 mg/dl (8.6-10.3); Potassium 3.8 mmol/L (3.5-5.1)
[2023-12-02 07:43] LABS: Albumin Globulin Ratio 1.1 (0.9-2); BUN Creatinine Ratio 19.1 (10-20); Creatinine Clr Calc Pharmacy 165.4 ml/min; Est GFR (African American) 143.2 ml/min; Est GFR (Non-African American) 123.6 ml/min; Globulin 2.6 gm/dl (2.5-4.0); Phosphorus 2.6 mg/dl (2.5-4.9); Total Protein 5.4 gm/dl (6.0-8.3)
[2023-12-02] MEDS: NSS + 20MEQ KCL 20 MEQ/1,000 ML BAG IV SCH ×2 (08:41→17:27)
[2023-12-02] MEDS: ACETAMINOPHEN 1,000 MG/100 ML VIAL IV PRN (08:54)
--- NOTE | 2023-12-02 09:25 | Surgery Progress Note ---
Date of Service December 02, 2023 Assessment & Plan (1) Elevated liver enzymes: (2) Acute cholecystitis: Plan: POD 1 s/p laparoscopic cholecystectomy. Afebrile o/n. BP soft since MN and this am without tachycardia. H/H stable this am at 9.5/29.1 from 10/30.5. May consider bolus if patient with lightheadedness or dizziness as she gets up this am. LFTs are continuing to trend down quite nicely. She may try full liquids today. F/u tomorrow am labs Admission and Anticipated Discharge Date Admission Date: November 30, 2023 Subjective Patient seen and examined this am. Is without complaints. Mentions a small amount of post surgical pain when asked. Hasn't had any N/V, F/C Physical Exam Gastrointestinal (Abdomen): Incisions with a small amount of irritation without evidence for infection. Incisions remain sealed/intact and dry. Abdomen is soft, without unusual tenderness post surgical. Results & Data Vital Signs (Past 12 Hours) Vital Signs Temp Pulse Pulse Resp BP Pulse Ox O2 Del Method 12/02/23 07:26 87 12/02/23 06:35 36.7 C 77 16 98/63 L 92 Room Air 12/02/23 00:00 75 12/01/23 23:11 36.5 C 68 16 99/62 L 93 Room Air Laboratory Results LFTS trending down: T bili is now normal this am at 0.7 from 1.9 yesterday AST 44 from 83 yesterday ALT 90 from 125 Alk Phos 143 from 179 PG Care Time/CCT Total # of Minutes Spent Total Time Spent with Patient: Total time spent is greater than 50% in coordination of care (as documented) at patient's floor/unit and/or counseling patient: Coding Level of Care Code 49251 Post Operative Follow-Up Diagnoses Elevated liver enzymes R74.8 Acute cholecystitis K81.0
--- NOTE | 2023-12-02 12:28 | Hospitalist Progress Note ---
Date of Service December 02, 2023 Assessment & Plan (1) Sepsis: (2) Acute cholecystitis: (3) Transaminitis: (4) Abdominal pain: (5) Abnormal urinalysis: Plan Ms. Tang is a 38-year-old female who has a significant past medical history of depression with anxiety, seasonal allergies and ADHD who presents to ED secondary to abnormal abdominal ultrasound as outpatient and abdominal pain. She was noted to have obstructing stone and acute cholecystitis, and admitted for management of sepsis and acute obstructive cholecystitis. Patient is now POD 1 lap anika and LFTS are downtrending. [place] [facility] [place] given resolution of biliary obstruction. Plans to advance diet and encourage ambulation. #Sepsis, POA *improving #Acute cholecystitis s/p lap anika 12/01/2023 #Transaminitis OP US: Cholelithiasis, gallbladder wall thickening, positive Abreu sign concerning for acute cholecystitis, CBD dilated to 8 mm Obtain MRCP to rule out obstruction ED provider discussed with on-call gastroenterology MRCP performed Cholelithiasis with a markedly thickened gallbladder wall and pericholecystic fluid/edema. There is a 7 mm stone at the gallbladder neck/cystic duct. This likely accounts for the suspected acute cholecystitis. Urgent surgical consultation recommended. 2. No evidence for choledocholithiasis. Discussed with General Surgery Dr. Cj Buenrostro as well as [facility] Transfer center team Dr. Pineda CULP and Dr Yo gen surg of [place] All were in agreement to transfer pt to tertiary given lack of biliary coverage on site Given delay in transfer and downtrend in lfts, cholecystectomy performed If LFTS rise, will transfer in am 12/02 -Continue antibiotics with IV cefepime and IV Flagyl Advance diet to full liquid Pain control with IV Tylenol mild pain, IV Toradol moderate pain, IV Dilaudid severe pain Continue to trend CMP in am, downtrending #Abnormal urinalysis Urinalysis concerning for possible infection, however, no growth to date Patient denies any symptoms, has previous history of urinary tract infection with symptoms Currently on antibiotics as above, await urine culture #Depression with anxiety ADHD chronic, stable Continue escitalopram Hold dextroamphetamine while inpatient DVT prophylaxis: SCDs due to likely upcoming procedure, encouraged ambulation Full code PCP: Dr. Daigle Dispo: admit to tele, Admission and Anticipated Discharge Date Admission Date: November 30, 2023 Subjective Feeling much better this am as far as abdominal pain, stating that she is sore, but it is not anywhere near what it was when she presented. She states she does not have much appetite but otherwise denies any nausea or vomiting Physical Exam Constitutional: WD/WN, vitals as above Respiratory: normal respiratory effort, lungs clear to auscultation Cardiovascular: RRR, no murmur, no edema Musculoskeletal: no cyanosis or clubbing, extremities motor strength 5/5 Results & Data Results & Data Vital Signs (Past 12 Hours) Vital Signs Temp Pulse Pulse Resp BP Pulse Ox O2 Del Method 12/02/23 12:00 36.7 C 75 16 101/65 94 Room Air 12/02/23 09:00 Room Air 12/02/23 07:26 87 12/02/23 06:35 36.7 C 77 16 98/63 L 92 Room Air Laboratory Results Short CBC 12/02/23 Range/Units 06:50 WBC 9.37 (4.8-10.8) K/ul Hgb 9.5 L (12.0-16.0) g/dl Hct 29.1 L (37.0-47.0) % Plt Count 239 (130-400) K/uL BMP 12/02/23 06:50 Sodium 139 Potassium 3.8 Chloride 110 H Carbon Dioxide 25 BUN 9 Creatinine 0.47 L Glucose 101 H Calcium 7.9 L Liver Function 12/02/23 Range/Units 06:50 Total Bilirubin 0.7 D (0.2-1.0) mg/dl AST 44 H (13-39) U/L ALT 90 H (7-52) U/L Alkaline Phosphatase 143 H (34-104) U/L Albumin 2.8 L (3.4-5.0) gm/dl Medications Administered Home Medications Medication Instructions Recorded Confirmed Last Taken escitalopram oxalate 10 mg tablet 10 mg PO DAILY 07/13/23 11/30/23 Unknown dextroamphetamine-amphetamine ER 20 mg PO QAM 11/30/23 11/30/23 Unknown 20 mg 24hr capsule,extend release ciprofloxacin HCl 500 mg tablet 500 mg PO Q12H post surgery 14 12/01/23 Unknown (Cipro) days #28 tabs metronidazole 500 mg tablet 500 mg PO Q12H post operative 12/01/23 Unknown surgery 14 days #28 tabs oxycodone 5 mg tablet 5 - 10 mg (1 - 2 x 5 mg) PO 12/01/23 Unknown .[id number] PRN pain #15 tabs Active Medications Generic Name Dose Route Start Last Admin Trade Name Freq PRN Reason Stop Dose Admin Escitalopram Oxalate 10 mg 11/30/23 21:00 12/01/23 23:30 Escitalopram Oxalate 10 Mg Tab PO 12/30/23 20:59 10 mg HS RAMSEY Administration Potassium Chloride/Sodium Chloride 20 meq in 1,000 mls @ 110 mls/hr 11/30/23 18:00 12/02/23 08:41 Normal Saline W/20 Meq Kcl IV 12/30/23 17:59 110 mls/hr .Q9H6M RAMSEY Administration Acetaminophen 1,000 mg in 100 mls @ 400 mls/hr 11/30/23 18:00 12/02/23 09:17 Ofirmev IV 12/03/23 17:59 Infused Q8H PRN Infusion Mild Pain (Scale 1, 2, 3) Cefepime HCl 2,000 mg/ Syringe 20 mls @ 5 mls/min 11/30/23 22:00 12/02/23 04:29 IV 12/10/23 21:59 5 mls/min Q8H RAMSEY Administration Protocol Metronidazole 500 mg in 100 mls @ 100 mls/hr 11/30/23 19:00 12/02/23 11:52 Flagyl IV 12/10/23 18:59 Infused Q8H RAMSEY Infusion Protocol Ketorolac Tromethamine 30 mg 11/30/23 18:00 12/02/23 10:44 Ketorolac 30 Mg/Ml Vial IV 12/05/23 17:59 30 mg Q6H PRN Administration Moderate Pain (Scale 4, 5, 6)
[2023-12-02] MEDS: ESCITALOPRAM OXALATE 10 MG TAB PO SCH (20:52)
[2023-12-03] MEDS: metroNIDAZOLE 500 MG/100 ML BAG IV SCH (02:25)
[2023-12-03] MEDS: NSS + 20MEQ KCL 20 MEQ/1,000 ML BAG IV SCH ×2 (02:25→12:11)
[2023-12-03] MEDS: CEFEPIME 2,000 MG in SYRINGE 0 ML IV SCH (05:57)
[2023-12-03] MEDS: KETOROLAC 30 MG/ML VIAL IV PRN (06:04)
--- NOTE | 2023-12-03 06:31 | Hospitalist Progress Note ---
Date of Service December 03, 2023 Assessment & Plan (1) Sepsis: (2) Acute cholecystitis: (3) Transaminitis: (4) Abdominal pain: (5) Abnormal urinalysis: Plan Ms. Tang is a 38-year-old female who has a significant past medical history of depression with anxiety, seasonal allergies and ADHD who presents to ED secondary to abnormal abdominal ultrasound as outpatient and abdominal pain. She was noted to have obstructing stone and acute cholecystitis, and admitted for management of sepsis and acute obstructive cholecystitis. Patient is now POD 1 lap anika and LFTS are downtrending. Transfer to [facility] to be discontinued given resolution of biliary obstruction. Plans to advance diet and encourage ambulation. #Sepsis, POA *improving #Acute cholecystitis s/p lap anika 12/01/2023 #Transaminitis OP US: Cholelithiasis, gallbladder wall thickening, positive Abreu sign concerning for acute cholecystitis, CBD dilated to 8 mm Obtain MRCP to rule out obstruction ED provider discussed with on-call gastroenterology MRCP performed Cholelithiasis with a markedly thickened gallbladder wall and pericholecystic fluid/edema. There is a 7 mm stone at the gallbladder neck/cystic duct. This likely accounts for the suspected acute cholecystitis. Urgent surgical consultation recommended. 2. No evidence for choledocholithiasis. Discussed with General Surgery Dr. Cj Buenrostro as well as [facility] Transfer center team Dr. Pineda CULP and Dr Yo gen surg of [place] All were in agreement to transfer pt to tertiary given lack of biliary coverage on site Given delay in transfer and downtrend in lfts, cholecystectomy performed If LFTS rise, will transfer in am 12/02 -Continue antibiotics with IV cefepime and IV Flagyl Advance diet to full liquid Pain control with IV Tylenol mild pain, IV Toradol moderate pain, IV Dilaudid severe pain Continue to trend CMP in am, downtrending #Abnormal urinalysis Urinalysis concerning for possible infection, however, no growth to date Patient denies any symptoms, has previous history of urinary tract infection with symptoms Currently on antibiotics as above, await urine culture #Depression with anxiety ADHD chronic, stable Continue escitalopram Hold dextroamphetamine while inpatient DVT prophylaxis: SCDs due to likely upcoming procedure, encouraged ambulation Full code PCP: Dr. Daigle Dispo: admit to tele, Admission and Anticipated Discharge Date Admission Date: November 30, 2023 Results & Data Results & Data Vital Signs (Past 12 Hours) Vital Signs Temp Pulse Pulse Resp BP Pulse Ox O2 Del Method 12/03/23 02:08 36.7 C 76 16 108/72 91 Room Air 12/02/23 23:57 71 12/02/23 23:27 36.7 C 78 16 111/71 91 Room Air 12/02/23 19:52 36.7 C 75 16 107/66 90 Room Air
[2023-12-03 07:10] LABS: Hematocrit (blood only) 31.9 % (37.0-47.0); Mean Corpuscular Hgb Conc 31.3 g/dL (32.0-36.0); Mean Corpuscular Volume 83.1 fL (80.0-100.0); Mean Platelet Volume 10.5 fL (9.4-12.4); Platelet Count 271 K/uL (130-400); RDW Coefficient of Variation 13.3 % (11.5-14.5); RDW Standard Deviation 40.7 fL (36.4-46.3); Red Blood Count 3.84 M/uL (4.20-5.40); White Blood Count 6.07 K/ul (4.8-10.8)
[2023-12-03 07:13] LABS: Albumin Level 2.8 gm/dl (3.4-5.0); BUN Creatinine Ratio 22.4 (10-20); Bilirubin,Total 0.5 mg/dl (0.2-1.0); Calcium 8.1 mg/dl (8.6-10.3); Creatinine Clr Calc Pharmacy 167.7 ml/min; Est GFR (African American) 141.2 ml/min; Est GFR (Non-African American) 121.9 ml/min; Globulin 2.8 gm/dl (2.5-4.0); Magnesium 1.9 mg/dl (1.7-2.4); Phosphorus 2.8 mg/dl (2.5-4.9); Potassium 4.2 mmol/L (3.5-5.1); Total Protein 5.6 gm/dl (6.0-8.3)
--- NOTE | 2023-12-03 09:44 | Surgery Progress Note ---
Date of Service December 03, 2023 Assessment & Plan (1) Acute cholecystitis: Plan POD 2 S/P laparoscopic cholecystectomy. Afebrile overnight with stable vital signs. Tolerates oral intake and transaminitis is resolving. Diet was advanced to low-fat diet this morning. Patient may be discharged from surgical perspective with follow-up to Dr. Buenrostro in 2 weeks. Admission and Anticipated Discharge Date Admission Date: November 30, 2023 Subjective Patient was seen and examined this a.m. She continues to deny nausea vomiting and unusual abdominal pain. She also continues to tolerate oral intake. Physical Exam Gastrointestinal (Abdomen): Abdomen is soft, nontender away from incision sites. Inflammatory reaction of the skin immediately around incisions without evidence for infection. Results & Data Vital Signs (Past 12 Hours) Vital Signs Temp Pulse Pulse Resp BP Pulse Ox O2 Del Method 12/03/23 08:23 68 12/03/23 07:32 37.1 C 81 16 108/71 93 Room Air 12/03/23 02:08 36.7 C 76 16 108/72 91 Room Air 12/02/23 23:57 71 12/02/23 23:27 36.7 C 78 16 111/71 91 Room Air Laboratory Results Total bilirubin is again normal today. AST is now normal today. ALT and alk phos continue to trend towards normal. PG Care Time/CCT Total # of Minutes Spent Total Time Spent with Patient: Total time spent is greater than 50% in coordination of care (as documented) at patient's floor/unit and/or counseling patient: Coding Level of Care Code 91502 Post Operative Follow-Up Diagnoses Acute cholecystitis K81.0
--- NOTE | 2023-12-03 11:00 | Discharge Summary ---
Discharge Summary Date of Service December 03, 2023 Notes For Next Care Provider Medication Changes From Visit Cipro/Flagyl given biliary obstruction Oxycodone Admission HPI Per Admitting Provider This is a 38-year-old female who has a significant past medical history of depression with anxiety, seasonal allergies and ADHD who presents to ED secondary to abnormal abdominal ultrasound as outpatient and abdominal pain. She was seen and evaluated in outpatient clinic today. Outpatient records were reviewed. Symptoms started approximately 5 days ago with right upper quadrant p ain, nausea and bloating. She forced herself to vomit this past Monday, but has not vomited since. She has not drank anything in the last 24 hours due to not feeling well. Pain gets worse with eating. She has never had similar symptoms. Pain does not radiate. She denies any documented fever, chills or sweats. She further denies any chest pain, cough, URI symptoms, dysuria, increased urinary frequency with urination, hematuria, melena, hematochezia or diarrhea. She does complain of shortness of breath when pain becomes severe. An abdominal ultrasound was ordered as an outpatient. Ultrasound was equivocal for cholelithiasis, gallbladder wall thickening with positive Abreu sign concerning for acute cholecystitis. Her CBD was measuring 8 mm and dilated. She was referred to ED for further evaluation. In ED she was hemodynamically stable. She did have leukocytosis with WBC at 16k, transaminitis with total bilirubin of 2.0, AST 148, ALT 166 and alk phos 189. Her urinalysis revealed +2 protein, glucose, ketones, bilirubin, nitrate and bacteria. She empirically received IV cefepime, IV fluids, IV Zofran, IV morphine and Toradol in ED. She has allergy to penicillins. Her is at bedside who also helps elicit history. Admission Exam Per Admitting Provider Constitutional: WD/WN, vitals as above, NAD, sitting up in bed, pleasant, conversing easily Head: Normocephalic, Atraumatic Eyes: PERRL, conjunctivae normal, anicteric sclerae ENMT: external ear and nose normal, oropharynx normal Neck: trachea midline, no thyromegaly normal visual inspection Respiratory: normal respiratory effort, lungs clear to auscultation, no wheeze, rales, rhonchi. Normal insp/exp effort, no accessory muscle use Cardiovascular: RRR, no murmur, no edema Vessels: no JVD or carotid bruit Chest: normal inspection of chest Abdomen: normal bowel sounds, soft, +pain to palp RUQ with rebound, not distended Musculoskeletal: no cyanosis or clubbing, extremities motor strength 5/5 Skin: no rashes, warm and dry normal turgor Neurologic: PERRL, EOMI, accommodation nl, no face palsy, no dysarthria CN's II-XI intact bilaterally and moves all extremities Psychiatric: A+Ox3, euthymic affect Lymphatic: no cervical or axillary lymphadenopathy : deferred Principal Dx & Hospital Course #1 = Principal Diagnosis (1) Sepsis: (2) Acute cholecystitis: (3) Transaminitis: (4) Abdominal pain: (5) Abnormal urinalysis: Plan Ms. Tang is a 38-year-old female who has a significant past medical history of depression with anxiety, seasonal allergies and ADHD who presents to ED seco ndary to abnormal abdominal ultrasound as outpatient and abdominal pain. She was noted to have obstructing stone and acute cholecystitis, and admitted for management of sepsis and acute obstructive cholecystitis. Patient is now POD 1 lap anika and LFTS are downtrending. [place] [facility] [place] given resolution of biliary obstruction. Patient tolerated diet and ambulating without difficulty. Patient states pain is well controlled. Surgery evaluated and ready for discharge. #Sepsis, POA *improving #Acute cholecystitis s/p lap anika 12/01/2023 #Transaminitis OP US: Cholelithiasis, gallbladder wall thickening, positive Abreu sign concerning for acute cholecystitis, CBD dilated to 8 mm Obtain MRCP to rule out obstruction ED provider discussed with on-call gastroenterology MRCP performed Cholelithiasis with a markedly thickened gallbladder wall and pericholecystic fluid/edema. There is a 7 mm stone at the gallbladder neck/cystic duct. This likely accounts for the suspected acute cholecystitis. Urgent surgical consultation recommended. 2. No evidence for choledocholithiasis. Discussed with General Surgery Dr. Cj Buenrostro as well as [facility] Transfer center team Dr. Pineda CULP and Dr Yo gen surg of [place] All were in agreement to transfer pt to tertiary given lack of biliary coverage on site Given delay in transfer and downtrend in lfts, cholecystectomy performed If LFTS rise, will transfer in am 12/02 Continue PO cipro/flagyl until completed Keep follow up with surgery as scheduled in 2 weeks Pain regimen OP per surgery #Abnormal urinalysis No growth to date, no active symptoms, covered by IV/PO abx #Depression with anxiety ADHD chronic, stable Continue home regimen Discharge Exam Constitutional WD/WN, vitals as above Respiratory normal respiratory effort, lungs clear to auscultation Cardiovascular RRR, no murmur, no edema Gastrointestinal (Abdomen) normal bowel sounds, soft, nontender, no hepatosplenomegaly Musculoskeletal no cyanosis or clubbing, extremities motor strength 5/5 Updated Medication List Medication Instructions Recorded Confirmed Type escitalopram oxalate 10 mg tablet 10 mg PO DAILY 07/13/23 11/30/23 History dextroamphetamine-amphetamine ER 20 mg PO QAM 11/30/23 11/30/23 History 20 mg 24hr capsule,extend release ciprofloxacin HCl 500 mg tablet 500 mg PO Q12H post surgery 14 12/01/23 Rx (Cipro) days #28 tabs metronidazole 500 mg tablet 500 mg PO Q12H post operative 12/01/23 Rx surgery 14 days #28 tabs oxycodone 5 mg tablet 5 - 10 mg (1 - 2 x 5 mg) PO 12/01/23 Rx .[id number] PRN pain #15 tabs Hospital Stay Data Consultations 11/30/23 16:07 ED Decision to Admit Stat 11/30/23 16:09 Consult Gastroenterology Routine 11/30/23 16:51 Consult General Surgery Routine Procedures Performed Operation Date: 12/01/23 07:10 Actual Procedures p Laparoscopic Cholecystectomy(Not Applicable) - Cj Buenrostro, Diagnostic Imagining Performed 11/30/23 15:50 MR MRCP Stat Pending Results Patient Have Any Pending Studies at Discharge: Yes Discharge Instructions Given to Patient (Per Discharging Provider) You have surgical glue called dermabond on your surgical site incisions. You may shower with this on. This will tend to come off within a couple of weeks. Do not pick at it. Total Time Total Time Spent Total Time Spent (In Minutes): 35
== END 2023-12-03 13:00 | disposition home or self-care (01) | DRG 854 ==
LOC: ED 11:28 → EDINP 16:09 → SUATTDRO 16:09 → EDINP 18:01 → 2N 12-01 15:18